=== PATIENT | male | born 1940 | race Caucasian/White ===

== ENCOUNTER 2017-07-14 08:59 | Observation (INO) ==
[2017-07-14 09:26] LABS: Basophils % 0.7 % (0.1-2.0); Eosinophils # 0.2 K/mm3 (0.0-0.4); Eosinophils % 3.9 % (0.1-12.0); Hematocrit 40.6 % (42.0-52.0); Hemoglobin 13.7 g/dL (14.1-18.0); Lymphocytes % 20.4 K/mm3 (10-50); Mean Corpuscular HGB Conc 33.7 g/dL (31.8-35.4); Mean Corpuscular Hemoglobin 29.2 pg (27.0-31.2); Mean Corpuscular Volume 86.8 fl (80-94); Mean Platelet Volume 7.2 fl (7.4-10.4); Monocytes # 0.4 K/mm3 (0.1-1.0); Monocytes % 9.4 % (1.7-9.3); Neutrophils # 3.1 K/mm3 (1.8-7.8); Neutrophils % 65.5 % (37.0-80.0); Platelet Count 194 K/mm3 (142-424); Red Blood Count 4.68 M/mm3 (4.60-6.20); Red Cell Distribution Width 12.7 % (11.5-17.5); White Blood Count 4.7 K/mm3 (4.8-10.8)
[2017-07-14 09:34] LABS: INR 1.4 (0.9-1.1); Prothrombin Time 15.2 seconds (9.4-11.8)
[2017-07-14 09:41] LABS: Albumin Level 3.5 gm/dL (3.4-5.0); Albumin/Globulin Ratio 0.9 (1.1-1.8); Anion Gap 10.3 mEq/L (5-15); Bilirubin,Total 0.2 mg/dL (0.2-1.0); Calcium 8.9 mg/dL (8.5-10.1); Globulin 3.8 gm/dl (1.3-3.2); Potassium 4.3 mmoL/L (3.5-5.1); Total Protein,Serum 7.3 gm/dL (6.4-8.2)
[2017-07-14 10:05] LABS: Microscopic, Urine URINE MICROSCOPIC (MICROSCOPIC)
[2017-07-14 10:21] LABS: Appearance,Urine CLEAR (Clear); Bilirubin,Urine Negative (Negative); Blood, Urine Negative (Negative); Color,Urine YELLOW (Yellow); Glucose,Urine (UA) Negative (Negative); Ketones,Urine Negative (Negative); Leukocyte Esterase,Urine Negative (Negative); Protein,Urine Negative (Negative); Specific Gravity, Urine 1.015 (1.005-1.030); Urobilinogen,Urine 0.2 EU/dl (0.2)
[2017-07-14 10:36] LABS: Bacteria,Urine Trace /lpf; RBC,Urine Occasional #/hpf (0-3); Squamous Epithelial Cell,Urine Occasional #/hpf (0-5)
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
--- NOTE | 2017-07-14 13:47 | Carotid Imaging Report ---
"Cerebrovascular Exam Indications: 780.2 Syncope and collapse. 434.91 Cerebral artery occlusion unspecified with cerebral infarction. IMPRESSIONS Cannot excludeless than 20% stenosis involving the right internal carotid artery and the left internal carotid artery. Technically difficult exam secondary to patient anatomy had very short dense neck could not image beyond bulb. Limited exam. Report is no different from exam done on 06/20/14 same difficulty with that previous exam History: Coronary artery disease. Risk factors: Hypertension. Carotid duplex study. Complete study and Doppler flow study including spectral analysis, color and high scale imaging. Location: Vascular laboratory. Patient status: Inpatient. Tables: Arterial flow: + +---------+---------+ |Location |V sys |V ed | + +---------+---------+ |Right CCA - proximal|-73.9cm/s|-15.7cm/s| + +---------+---------+ |Right CCA - distal |-68.4cm/s|-15.7cm/s| + +---------+---------+ |Left CCA - proximal |58.1cm/s |14.9cm/s | + +---------+---------+ |Left CCA - distal |51.1cm/s |11.8cm/s | + +---------+---------+ |Left ECA |-43.2cm/s|---------| + +---------+---------+ |Left ICA - proximal |-43.2cm/s|-12.6cm/s| + +---------+---------+ (Report amended ) Electronically signed by: Sonu Rivera [id number]"
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
--- NOTE | 2017-07-14 22:47 | Cardiology Report ---
PROCEDURE: 2-D M-mode and color Doppler study INDICATIONS FOR THE TEST: Chest pain COPD Heart Murmur Tobacco SmokingEX Palpitations Fatigue SyncopeX Edema HypertensionXDiabetes Mellitus Rheumatic Fever SOB CHIU ObesityXHyperlipidemia Family History HD Additional History TDS POOR ACOUSTIC WINDOWS PATIENT INFORMATION HEIGHT: 69 WEIGHT:216 GENDER: Male B/P:120/80 2-D/M-MODE INTERPRETATION: 2-D MEASUREMENTS OBSERVED VALUES IN CMS Right Ventricular Dimension (RVDd) 2.8 Interventricular Septum (Thickness)(IVsd) 1.0 Left Ventricular Internal Dimensions(LVIDd) 6.0 Left Ventricular Posterior Wall (Thickness)(LVPWd) 1.2 Aortic Root 3.6 Aortic Cusp Separation 2.2 Left Atrial Dimensions (LAD) 3.2 2D 1. Left atrium is qualitatively mildly enlarged, left ventricle is normal size, mild concentric left ventricular hypertrophy, visually estimated ejection fraction 55% with no obvious regional wall motion abnormality. 2. The right atrium and right ventricle are normal size and contractility. There is a pacemaker lead seen in the right atrium and right ventricle. 3. The aortic valve is minimally thickened and fibrosed. 4. The mitral and tricuspid valve leaflets are minimally thickened. 5. The pulmonic valve is poorly visualized. 6. No significant pericardial effusion noted. DOPPLER INTERROGATION: Doppler interrogation of the aortic, mitral and tricuspid valvular presence of mild mitral and tricuspid regurgitation, tricuspid regurgitant jet velocity is insufficient for calculation of the right ventricular systolic pressure, diastolic parameters are inconclusive. CONCLUSION: 1. Technically difficult study because of the patient's factor and poor acoustic windows 2. Mildly enlarged left atrium, normal left ventricular size, mild concentric left ventricular hypertrophy, visually estimated ejection fraction 55% with no obvious regional wall motion abnormality, diastolic parameters are inconclusive. 3. Mild mitral and tricuspid regurgitation 4. No significant pericardial effusion noted.
--- NOTE | 2017-07-15 06:55 | Progress Note ---
Internal Medicine - PN: Subj *Date: 07/15/17 *Time: 06:53 Interval history: Patient has no complaints this morning. He did well overnight and no one has told him otherwise. He denies headache, chest pain, shortness of breath this morning. When questioned further about his use of Trileptal he tells me he has been on that medication for many years since his prior stroke. He is unaware if he is actually ever had any seizures. Exam Vital signs and Labs for Last 24 Hours: Temp Pulse Resp BP Pulse Ox 98.4 F 67 18 92/56 94 L 07/15/17 03:48 07/15/17 04:00 07/15/17 03:48 07/15/17 03:48 07/15/17 03:48 Laboratory Results - last 24 hr 07/14/17 09:00: WBC 4.7 L, RBC 4.68, Hgb 13.7 L, Hct 40.6 L, MCV 86.8, MCH 29.2 , MCHC 33.7, RDW 12.7, Plt Count 194, MPV 7.2 L, Neut % (Auto) 65.5, Lymph % ( Auto) 20.4, [place] % (Auto) 9.4 H, Eos % (Auto) 3.9, Baso % (Auto) 0.7, Neut # ( Auto) 3.1, Lymph # (Auto) 1.0, [place] # (Auto) 0.4, Eos # (Auto) 0.2, Baso # (Auto ) 0.0 07/14/17 09:00: PT 15.2 H, INR 1.40 H 07/14/17 09:00: Sodium 134 L, Potassium 4.3, Chloride 98, Carbon Dioxide 30, Anion Gap 10.3, BUN 24 H, Creatinine 1.28, Estimated Creat Clear 69, Estimated GFR 55 L, Est GFR ( Amer) 66, Glucose 118 H, Calcium 8.9, Total Bilirubin 0.2, AST 28, ALT 27, Alkaline Phosphatase 122 H, Total Protein 7.3, Albumin 3.5, Globulin 3.8 H, Albumin/Globulin Ratio 0.9 L 07/14/17 09:56: Urine Color Yellow, Urine Appearance Clear, Urine pH 6.0, Ur Specific [place] 1.015, Urine Protein Negative, Urine Glucose (UA) Negative, Urine Ketones Negative, Urine Blood Negative, Urine Nitrate Negative, Urine Bilirubin Negative, Urine Urobilinogen 0.2, Ur Leukocyte Esterase Negative, Urine RBC Occasional, Urine WBC None, Ur Squamous Epith Cells Occasional, Urine Bacteria Trace 07/14/17 14:03: Troponin I < 0.02 I & O for Last 24 hours: Intake & Output 07/12/17 07/13/17 07/14/17 07/15/17 11:59 11:59 11:59 11:59 Intake Total 720 / 720 Output Total 800 / 800 Balance -80 / -80 Weight 209 lb 2 oz 209 lb 2 oz Narrative: He is awake and alert this morning. Oriented to person and place. Lungs are clear. Heart has a regular rate and rhythm. Periorbital erythema is improving. Assessment and Plan (1) Syncope Current visit: Yes Status: Acute Qualifiers: Syncope type: unspecified Qualified Code(s): R55 - Syncope and collapse Category: Medical Code(s): R55 - Syncope and collapse - Assessment and plan all Dx Assessment and Plan for all problems:: 1. EEG and CT angiogram of the head and neck today. 2. PT eval later this afternoon.
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
== END 2017-07-16 09:00 | disposition home or self-care (01) ==
LOC: 2ND 08:59 → ER 08:59 → 2ND 11:47
PROVIDERS: ADMIT Family Medicine; ATTEND Family Medicine

== ENCOUNTER → 2017-08-18 16:02 | Outpatient (CLI) | payer OTHER, MEDICARE, MEDICAID, SELFPAY ==
--- NOTE | 2017-08-18 16:09 | XR_ITS ---
EXAM: XR lumbar spine min 4V HISTORY: ITS.REASON: PAIN OF LUMBOSACRAL SPINE ORDERING PHYSICIAN: Pavan Villalba MD PATIENT AGE: 77 years COMPARISON: None FINDINGS: There is normal alignment. No fracture or dislocation. Endplate osteophytes are present. There are slight decrease in height at T12 appears chronic. There are mild facet arthritic changes at L4-L5 and L5-S1. No bony destructive process evident. There is a total right hip prosthesis and bipolar left hip prosthesis IMPRESSION: Mild lumbar spondylosis with osteophytosis and facet arthritic changes at L4-L5 and L5-S1
== END ==
PROVIDERS: PCP Family Medicine; Visit Provider Family Medicine
DX: M54.5 Low back pain (principal)
CPT/HCPCS: 72110

== ENCOUNTER 2017-12-06 19:06 | Observation (INO) ==
[2017-12-06 20:30] LABS: Prothrombin Time 43.5 seconds (9.4-11.8)
[2017-12-06 20:35] LABS: Albumin Level 3.2 gm/dL (3.4-5.0); Albumin/Globulin Ratio 0.9 (1.1-1.8); Anion Gap 13.4 mEq/L (5-15); Bilirubin,Total 0.4 mg/dL (0.2-1.0); Calcium 8.4 mg/dL (8.5-10.1); Globulin 3.6 gm/dl (1.3-3.2); Potassium 3.4 mmoL/L (3.5-5.1); Total Protein,Serum 6.8 gm/dL (6.4-8.2)
[2017-12-06 20:37] LABS: INR 4.41 (0.9-1.1)
--- NOTE | 2017-12-06 20:40 | Emergency Department Note ---
ED Disposition Clinical Impression: Renal insufficiency, Pacemaker UTI (urinary tract infection) Qualifiers: Urinary tract infection type: acute cystitis Hematuria presence: without hematuria Qualified Code(s): N30.00 - Acute cystitis without hematuria Fall Qualifiers: Encounter type: initial encounter Qualified Code(s): W19.XXXA - Unspecified fall, initial encounter Disposition: Admitted as Observation Condition on Discharge: Good Referrals: Pavan Villalba MD [Primary Care Provider] - - Critical Care Critical Care Time: No Attestation: On 12/06/17, the high probability of a clinically significant, sudden or life threatening deterioration of the following system(s) required my full and direct attention, intervention and personal management. The time I documented below is in addition to time spent performing reported procedures but includes the following listed in this critical care notation. Medical Decision Making - Medical Records Medical records reviewed: Yes: I reviewed the patient's medical records. - Azeem Inquiry Pt receiving controlled substance: No Vital Signs: 12/06/17 19:09 Temperature 98.9 F Temperature Source Oral Pulse Rate [Apical] 62 Respiratory Rate 18 Blood Pressure [Right Arm] 114/68 Blood Pressure Mean [Right Arm] 83 Blood Pressure Source [Right Arm] Automatic Cuff Blood Pressure Position [Right Arm] Sitting 02 Sat by Pulse Oximetry 96 Oxygen Delivery Method Room Air - Lab Data Lab results reviewed: Yes: I reviewed the patient's lab results. Lab Results 12/06/17 20:10: WBC 6.6, RBC 4.07 L, Hgb 11.8 L, Hct 35.7 L, MCV 87.7, MCH 29.0, MCHC 33.1, RDW 13.5, Plt Count 254, MPV 7.3 L, Neut % (Auto) 83.2 H, Lymph % (A uto) 9.4 L, [place] % (Auto) 7.0, Eos % (Auto) 0.3, Baso % (Auto) 0.1, Neut # (Auto) 5.5, Lymph # (Auto) 0.6 L, [place] # (Auto) 0.5, Eos # (Auto) 0.0, Baso # (Auto) 0.0 12/06/17 20:10: Sodium 137, Potassium 3.4 L, Chloride 102, Carbon Dioxide 25, Anion Gap 13.4, BUN 54 H, Creatinine 2.10 H, Estimated Creat Clear 41, Estimated GFR 31 L, Est GFR ( Amer) 37 L, Glucose 114 H, Calcium 8.4 L, Total Bilirubin 0.4, AST 21, ALT 27, Alkaline Phosphatase 109, Total Protein 6.8, Albumin 3.2 L, Globulin 3.6 H, Albumin/Globulin Ratio 0.9 L 12/06/17 20:10: PT 43.5 H, INR 4.41 H 12/06/17 20:10: Troponin I < 0.02 12/06/17 21:00: Urine Color Yellow, Urine Appearance Cloudy, Urine pH 6.0, Ur Specific [place] 1.025, Urine Protein 1+, Urine Glucose (UA) Negative, Urine Ketones Negative, Urine Blood 2+, Urine Nitrate Positive, Urine Bilirubin Neg ative, Urine Urobilinogen 0.2, Ur Leukocyte Esterase 2+ A, Urine RBC 5-10, Urine WBC Tntc Result diagrams: 12/06/17 20:10 12/06/17 20:10 Orders (Tests/Meds): ORDERS Category Date Time Status XR chest AP Stat Exams 12/06/17 19:31 Taken XR pelvis 1-2V Stat Exams 12/06/17 19:31 Taken UA [Urinalysis and Microscopic] Stat Lab 12/06/17 21:00 Ordered Urine Culture Stat Micro 12/06/17 21:00 Received - Radiology Data #1 Image(s): Chest, Pelvis Image Reviewed: Yes I reviewed the patient's radiology image Preliminary Findings: No Fracture Seen - CT Data CT Scan: Head Time Received: 21:[address] Reviewed: Yes: I have viewed the radiologist's interpretation Preliminary Findings: Normal/NAD - ECG Data Tracing #1 Arrhythmias present: other (pacemaker) - Physician Consults Physician Consulted: darian Reason -: Admission Fall HPI - General Chief Complaint: Fall Stated Complaint: slipped and fell at home Time Seen by Provider: 12/06/17 20:00 Mode of Arrival: EMS Limitations: No Limitations Description of Symptoms (Recalled from ER Triage Doc. by RN): Per EMS reports pt family wanted him to come and get checked out r/t a slip and fall. Pt reports he was getting up from the toilet tripped on his pants leg and his shoe slipped causing him to fall. Pt denies any injury or pain. Upon arrival of pt family, family reports pt has had weakness x3 days - History of Present Illness HPI Narrative: pt with fall at home with hx of trip type injury getting off toilet - he has been weak over the last few days also - no fever or vomiting MD complaint: fall Onset (ago): hour(s) Fall from: other (toilet seat ) Fall witnessed: no Place fall occurred: home Loss of consciousness: none Prolonged down time: no Symptoms prior to fall: none Context: tripped/slipped Location of injury: head, pelvis Severity: moderate Associated symptoms (after fall): denies - Related Data Home Medications Medication Instructions Recorded Confirmed atenolol 50 mg tablet 50 mg PO BID 05/21/17 12/06/17 cholecalciferol (vitamin D3) 5,000 5,000 unit PO ONCE 05/21/17 12/06/17 unit capsule donepezil 10 mg tablet 10 mg PO HS 05/21/17 12/06/17 ezetimibe 10 mg-simvastatin 20 mg 1 tab PO HS 05/21/17 12/06/17 tablet lisinopril 10 mg tablet 10 mg PO DAILY 05/21/17 12/06/17 oxybutynin chloride 5 mg tablet 5 mg PO TID 05/21/17 12/06/17 tamsulosin 0.4 mg capsule 0.4 mg PO DAILY cap 05/21/17 12/06/17 oxcarbazepine 300 mg tablet 0.5 tab PO BID tab 09/28/17 12/06/17 warfarin 5 mg tablet 5 mg PO DAILY tab 09/28/17 12/06/17 naproxen 500 mg tablet 500 mg PO BID 11/26/17 12/06/17 Allergies Allergy/AdvReac Type Severity Reaction Status Date / Time codeine [CODEINE] Allergy Mild HEART RACE Verified 11/26/17 10:57 [facility] History I have reviewed the patient's past medical history: Yes Medical History: Reports:: Arrhythmia, Atrial Fibrillation, Cancer, Cerebrovascular Accident, Dementia, Hyperlipidemia, Hypertension, Internal Pacemaker, Seizures Denies:: Diabetes Mellitus Type 1, Diabetes Mellitus Type 2, MRSA Other Medical History: Reports: Other Comment: Kidney disease, prostate cancer Laterality Cases: Bilateral: Arthroscopy Hip, Total Hip Replacement Other Surgeries: Yes: Hernia Repair, Pacemaker Amputation: No Fractures: Yes (Right bimalleolar fx) Comment: Dual-chamber [employer] pacemaker implanted 2013 - Social History Smoking Status: Former smoker Tobacco Type: cigarettes Alcohol Intake: never Alcohol Intake Frequency:: other Substance Use Type: denies use Occupational Status: retired Housing: house Household Members: none - Psychiatric History Expresses thoughts of harming self/others: None Suicide Plan Description: No Plan Family Hx:: Diabetes, Cancer ROS Obtained: Yes All systems reviewed & no additional complaints - Constitutional Constitutional: Denies fever(s), Reports frequent falls, Denies headache(s) - Eyes Eyes: Denies change in vision - ENT Ears, Nose, Mouth, and Throat: Denies sore throat - Cardiovascular Cardiovascular: Denies chest pain - Respiratory Respiratory: No cough - Gastrointestinal Gastrointestingal: Denies: dysphagia - Genitourinary Male Genitourinary: Denies hematuria - Musculoskeletal Musculoskeletal: Reports joint pain, Denies back pain, Denies joint swelling, Denies neck pain - Integumentary/Breasts Skin/Breast: Denies rash - Neurologic Neurologic: Denies confusion, Reports frequent falls, Denies headache(s), Denies seizure-like activity Physical Exam - General General appearance: in no apparent distress - Head Head exam: normocephalic - Eye Eye exam: Present: PERRL, EOMI - ENT ENT exam: Present: mucous membranes dry - Neck Neck exam: Present: trachea midline - Respiratory Respiratory exam: Present: other (dec bs bilat ). Absent: respiratory distress - Cardiovascular Cardiovascular exam: Present: regular rate, systolic murmur, Pacemaker w/paced rhythm - Abdominal Exam Abdominal exam: Present: soft - Extremities Exam Extremities exam: Present: pedal edema, other (no pain with rom ) - Neurological Exam Neurological exam: Present: alert, CN II-XII intact - Psychiatric Psychiatric exam: Absent: normal affect - Skin Skin exam: Absent: rash
[2017-12-06 20:44] LABS: Basophils % 0.1 % (0.1-2.0); Eosinophils % 0.3 % (0.1-12.0); Hematocrit 35.7 % (42.0-52.0); Hemoglobin 11.8 g/dL (14.1-18.0); Lymphocytes # 0.6 K/mm3 (0.7-4.5); Lymphocytes % 9.4 K/mm3 (10-50); Mean Corpuscular HGB Conc 33.1 g/dL (31.8-35.4); Mean Corpuscular Volume 87.7 fl (80-94); Mean Platelet Volume 7.3 fl (7.4-10.4); Monocytes # 0.5 K/mm3 (0.1-1.0); Neutrophils # 5.5 K/mm3 (1.8-7.8); Neutrophils % 83.2 % (37.0-80.0); Platelet Count 254 K/mm3 (142-424); Red Blood Count 4.07 M/mm3 (4.60-6.20); Red Cell Distribution Width 13.5 % (11.5-17.5); White Blood Count 6.6 K/mm3 (4.8-10.8)
[2017-12-06 21:15] LABS: Appearance,Urine CLOUDY (Clear); Bilirubin,Urine Negative (Negative); Blood, Urine 2+ (Negative); Color,Urine YELLOW (Yellow); Glucose,Urine (UA) Negative (Negative); Ketones,Urine Negative (Negative); Leukocyte Esterase,Urine 2+ (Negative); Microscopic, Urine URINE MICROSCOPIC (MICROSCOPIC); Protein,Urine 1+ (Negative); Specific Gravity, Urine 1.025 (1.005-1.030); Urobilinogen,Urine 0.2 EU/dl (0.2)
[2017-12-06 21:30] LABS: WBC,Urine TNTC #/hpf (0-3)
[2017-12-07 05:09] LABS: Anion Gap 13.4 mEq/L (5-15); Blood Urea Nitrogen 48 mg/dL (7-18); Calcium 8.3 mg/dL (8.5-10.1); Carbon Dioxide 24 mmol/L (21.0-32.0); Chloride 105 mmol/L (98-107); Glucose 120 mg/dL (74-106); Potassium 3.4 mmoL/L (3.5-5.1); Sodium 139 mmol/L (136-145)
[2017-12-07 05:11] LABS: Basophils % 0.2 % (0.1-2.0); Eosinophils % 0.4 % (0.1-12.0); Hematocrit 35.3 % (42.0-52.0); Hemoglobin 11.8 g/dL (14.1-18.0); Lymphocytes # 0.7 K/mm3 (0.7-4.5); Lymphocytes % 11.7 K/mm3 (10-50); Mean Corpuscular HGB Conc 33.3 g/dL (31.8-35.4); Mean Corpuscular Volume 87.1 fl (80-94); Mean Platelet Volume 7.1 fl (7.4-10.4); Monocytes # 0.5 K/mm3 (0.1-1.0); Monocytes % 8.2 % (1.7-9.3); Neutrophils # 4.8 K/mm3 (1.8-7.8); Neutrophils % 79.4 % (37.0-80.0); Platelet Count 229 K/mm3 (142-424); Red Blood Count 4.05 M/mm3 (4.60-6.20); Red Cell Distribution Width 13.5 % (11.5-17.5)
[2017-12-07 05:14] LABS: INR 5.49 (0.9-1.1); Prothrombin Time 53.8 seconds (9.4-11.8)
== END 2017-12-07 09:22 | disposition home or self-care (01) ==
LOC: 2ND 19:06 → ER 19:06 → 2ND 23:01
PROVIDERS: ADMIT Family Medicine; ATTEND Family Medicine

== ENCOUNTER 2017-12-14 11:12 | Observation (INO) ==
[2017-12-14 13:05] LABS: Basophils % 0.1 % (0.1-2.0); Eosinophils % 0.3 % (0.1-12.0); Hematocrit 40.6 % (42.0-52.0); Lymphocytes # 0.3 K/mm3 (0.7-4.5); Lymphocytes % 3.7 K/mm3 (10-50); Mean Corpuscular HGB Conc 32.1 g/dL (31.8-35.4); Mean Corpuscular Hemoglobin 28.5 pg (27.0-31.2); Mean Corpuscular Volume 88.8 fl (80-94); Mean Platelet Volume 7.5 fl (7.4-10.4); Monocytes # 0.5 K/mm3 (0.1-1.0); Monocytes % 5.2 % (1.7-9.3); Neutrophils # 8.1 K/mm3 (1.8-7.8); Neutrophils % 90.8 % (37.0-80.0); Platelet Count 326 K/mm3 (142-424); Red Blood Count 4.57 M/mm3 (4.60-6.20); Red Cell Distribution Width 13.9 % (11.5-17.5)
[2017-12-14 13:13] LABS: Prothrombin Time 67.2 seconds (9.4-11.8)
[2017-12-14 13:14] LABS: INR 6.9 (0.9-1.1)
[2017-12-14 13:17] LABS: Albumin Level 3.1 gm/dL (3.4-5.0); Albumin/Globulin Ratio 0.8 (1.1-1.8); Anion Gap 13.9 mEq/L (5-15); Bilirubin,Total 0.4 mg/dL (0.2-1.0); Calcium 8.9 mg/dL (8.5-10.1); Globulin 4.1 gm/dl (1.3-3.2); Potassium 3.9 mmoL/L (3.5-5.1); Total Protein,Serum 7.2 gm/dL (6.4-8.2)
--- NOTE | 2017-12-14 14:30 | Pharmacy Consult Notes ---
[facility] Pharmacy VTE Monitoring - Patient Demographics Admission date: 12/14/17 Report Date: 12/14/17 Time: 14:30 Allergies/Adverse Reactions: Patient Allergies codeine [CODEINE] Allergy (Mild, Verified 11/26/17 10:57) HEART RACE Height: 1.68 m Weight: 98.628 kg - VTE Risk Labs: VTE Related Lab Results Hgb 13.0 g/dL (14.1-18.0) L 12/14/17 12:50 Hct 40.6 % (42.0-52.0) L 12/14/17 12:50 Plt Count 326 K/mm3 (142-424) 12/14/17 12:50 PT 67.2 seconds (9.4-11.8) H 12/14/17 12:50 INR 6.90 (0.9-1.1) H 12/14/17 12:50 BUN 59 mg/dL (7-18) H 12/14/17 12:50 Creatinine 2.94 mg/dL (0.70-1.30) H 12/14/17 12:50 Estimated Creat Clear 30 mL/min (0-300) 12/14/17 12:50 VTE Score: 5 VTE Risk Level: Low Risk - Prophylaxis VTE Prophylaxis Ordered?: Yes Types of VTE Prophylaxis: TEDS Knee High Location of Applied Device: Bilateral Lower Extremeties
[2017-12-14 14:36] LABS: Lymphocytes % 3 % (10-50); Monocytes % 3 % (2-9); Neutrophils % 93 % (42-76); RBC Morphology Normal; Total Cells Counted 100
--- NOTE | 2017-12-14 14:53 | Pharmacy Consult Notes ---
[facility] Pharmacy VTE Monitoring - Patient Demographics Allergies/Adverse Reactions: Patient Allergies codeine [CODEINE] Allergy (Mild, Verified 11/26/17 10:57) HEART RACE Height: 1.68 m Weight: 98.628 kg - VTE Risk Labs: VTE Related Lab Results Hgb 13.0 g/dL (14.1-18.0) L 12/14/17 12:50 Hct 40.6 % (42.0-52.0) L 12/14/17 12:50 Plt Count 326 K/mm3 (142-424) 12/14/17 12:50 PT 67.2 seconds (9.4-11.8) H 12/14/17 12:50 INR 6.90 (0.9-1.1) H 12/14/17 12:50 BUN 59 mg/dL (7-18) H 12/14/17 12:50 Creatinine 2.94 mg/dL (0.70-1.30) H 12/14/17 12:50 Estimated Creat Clear 30 mL/min (0-300) 12/14/17 12:50 VTE Score: 5 VTE Risk Level: Low Risk - Prophylaxis Location of Applied Device: Not Applicable
--- NOTE | 2017-12-14 16:34 | History & Physical Report ---
*Admission Date: 12/14/17 *Chief complaint: Shortness of breath *History of present illness: 77-year-old male admitted from the office today after presenting to the office for the second time in 5 days with complaint of shortness of breath. 5 days ago patient was seen and diagnosed with a COPD exacerbation and placed on steroids and an albuterol inhaler. Patient was accompanied by his son-in-law who reported that patient did not do well over the following days. The son-in-law almost brought the patient to the hospital yesterday but opted to wait for another day. In the office he was in mild respiratory distress with increased wheezing compared to his visit 5 days earlier. O2 sats were 85% on room air. Patient was mildly high in appearance and was so dyspneic he could not talk. Decision was made to admit the patient to the hospital for COPD exacerbation with concern pneumonia. Patient is also complained of new onset abdominal distention. He admits that he is not urinating very well. His last bowel movement was yesterday and was described as diarrhea. Patient was hospitalized approximately 1 week ago overnight for an observation admission for a urinary tract infection that grew E. coli sensitive to Cipro. During that hospitalization his INR was supratherapeutic and his coagulopathy was treated by holding his Coumadin. Patient did not take warfarin for 3 days and on return to the office his INR was 1.6. It was at that time he was restarted on warfarin at a reduced dose of 3 mg daily. [facility] History I have reviewed the patient's past medical history: Yes Medical History: Reports:: Arrhythmia, Atrial Fibrillation, Cancer (Prostate cancer), Cerebrovascular Accident, Dementia, Hyperlipidemia, Hypertension, Internal Pacemaker, Seizures Denies:: Diabetes Mellitus Type 1, Diabetes Mellitus Type 2, MRSA Other Medical History: Reports: Arthritis, Other Laterality Cases: Bilateral: Arthroscopy Hip, Total Hip Replacement Other Surgeries: Yes: Hernia Repair, Pacemaker Amputation: No Fractures: Yes (Right bimalleolar fx) - *Social History Smoking Status: Former smoker Tobacco Type: cigarettes Alcohol Intake: never Alcohol Intake Frequency:: holidays/special occasions only Substance Use Type: denies use Occupational Status: retired Housing: house Household Members: none - Psychiatric History Expresses thoughts of harming self/others: None Suicide Plan Description: No Plan *Family Hx:: Diabetes, Cancer Review of Systems - Review of Systems Review of systems:: pertinent systems reviewed and negative unless documented below - Constitutional Reports body ache(s), Denies chills - *Cardiovascular Denies chest pain, Denies chest pain at rest - *Respiratory Reports chest congestion, Reports cough, Reports shortness of breath, Reports shortness of breath with activity, Denies coughing up blood - *Gastrointestinal Reports bloating, Reports change in bowel habits, Reports cramping, Reports loose stools, Denies abdominal pain, Denies belching, Denies coffee ground vomit, Denies difficulty swallowing, Denies excessive passing of gas, Denies heartburn, Denies vomiting blood, Denies bright, red blood in stools, Denies black, tarry stools - *Genitourinary Reports difficulty urinating Meds Home Medications Medication Instructions Recorded Confirmed Type atenolol 50 mg tablet 50 mg PO BID 05/21/17 12/14/17 History cholecalciferol (vitamin D3) 5,000 5,000 unit PO ONCE 05/21/17 12/14/17 History unit capsule donepezil 10 mg tablet 10 mg PO HS 05/21/17 12/14/17 History ezetimibe 10 mg-simvastatin 20 mg 1 tab PO HS 05/21/17 12/14/17 History tablet oxybutynin chloride 5 mg tablet 5 mg PO TID 05/21/17 12/14/17 History tamsulosin 0.4 mg capsule 0.4 mg PO DAILY cap 05/21/17 12/14/17 History oxcarbazepine 300 mg tablet 0.5 tab PO BID tab 09/28/17 12/14/17 History Ciprofloxacin HCl [Cipro 250mg Tab] 250 mg PO BID 12/14/17 12/14/17 History Dicyclomine HCl [Bentyl 10mg 10 mg PO QID 12/14/17 12/14/17 History capsule] Furosemide [Furosemide 40MG tAB] 40 mg PO DAILY 12/14/17 12/14/17 History Lisinopril [Lisinopril 10mg Tab] 10 mg PO DAILY 12/14/17 12/14/17 History Naproxen Sodium [Naproxen ER 500mg 500 mg PO DAILY 12/14/17 12/14/17 History Tab] OXcarbazepine [Oxcarbazepine] 300 mg PO BID 12/14/17 12/14/17 History Warfarin Sodium 1 mg PO DAILY 12/14/17 12/14/17 History Warfarin Sodium 4 mg PO DAILY 12/14/17 12/14/17 History Warfarin Sodium 5 mg PO DAILY 12/14/17 12/14/17 History Warfarin Sodium [Coumadin 3mg 3 mg PO DAILY 12/14/17 12/14/17 History tablet] predniSONE [Prednisone 20mg 20 mg PO DAILY 12/14/17 12/14/17 History Tab] Allergies Allergy/AdvReac Type Severity Reaction Status Date / Time codeine [CODEINE] Allergy Mild HEART RACE Verified 11/26/17 10:57 Exam Vital signs and Labs for Last 24 Hours: Temp Pulse Resp BP Pulse Ox 97.8 F 114 H 18 100/60 93 L 12/14/17 16:00 12/14/17 16:00 12/14/17 16:00 12/14/17 16:00 12/14/17 16:00 Laboratory Results - last 24 hr 12/14/17 12:50: WBC 9.0, RBC 4.57 L, Hgb 13.0 L, Hct 40.6 L, MCV 88.8, MCH 28.5, MCHC 32.1, RDW 13.9, Plt Count 326, MPV 7.5, Neut % (Auto) 90.8 H, Lymph % (Auto) 3.7 L, [place] % (Auto) 5.2, Eos % (Auto) 0.3, Baso % (Auto) 0.1, Neut # (Auto) 8.1 H, Lymph # (Auto) 0.3 L, [place] # (Auto) 0.5, Eos # (Auto) 0.0, Baso # (Auto) 0.0, Total Counted 100, Neutrophils % (Manual) 93 H, Band Neutrophils % 1.0, Lymphocytes % (Manual) 3 L, Monocytes % (Manual) 3, Platelet Estimate Normal, RBC Morphology Normal 12/14/17 12:50: Sodium 134 L, Potassium 3.9, Chloride 98, Carbon Dioxide 26, Anion Gap 13.9, BUN 59 H, Creatinine 2.94 H, Estimated Creat Clear 30, Estimated GFR 21 L, Est GFR ( Amer) 25 L, Glucose 188 H, Calcium 8.9, Total Bilirubin 0.4, AST 84 H, ALT 87 H, Alkaline Phosphatase 110, Total Protein 7.2, Albumin 3.1 L, Globulin 4.1 H, Albumin/Globulin Ratio 0.8 L 12/14/17 12:50: B-Natriuretic Peptide 231 H 12/14/17 12:50: PT 67.2 H, INR 6.90 H I & O for Last 24 hours: Intake & Output 12/12/17 12/13/17 12/14/17 12/15/17 11:59 11:59 11:59 11:59 Weight 217 lb 7 oz 217 lb 7 oz Narrative: Presently patient is awake. He is oriented to person, place and year. Color has already improved compared to his examination in the office 5 hours earlier. Patient is more alert. Oropharynx is moist. Neck is without lymphadenopathy. Lungs are clear at this time (patient had diffuse wheezing in the office). Heart has an irregularly irregular rate and rhythm. Abdomen is significantly distended with tympany and diminished bowel sounds. There is no abdominal tenderness. Patient has active range of motion of all extremities and can ambulate on his own H&P: Result - Impressions Chest x-ray shows significant gaseous extension in the abdominal cavity. An abdominal film has been ordered separately and is in process. Assessment and Plan (1) COPD with exacerbation Current visit: Yes Status: Acute Category: Medical Code(s): J44.1 - Chronic obstructive pulmonary disease with (acute) exacerbation Solu-Medrol every 6 hours, ipratropium and Xopenex nebs (2) Warfarin-induced coagulopathy Current visit: Yes Status: Acute Category: Medical Code(s): D68.32 - Hemorrhagic disorder due to extrinsic circulating anticoagulants; T45.515A - Adverse effect of anticoagulants, initial encounter Patient has been given vitamin K 2.5 mg subcu. Repeat INR in a.m. (3) Abdominal distention Current visit: Yes Status: Acute Category: Medical Code(s): R14.0 - Abdominal distension (gaseous) Await abdominal films. May need NG tube (4) Urinary retention Current visit: Yes Status: Acute Category: Medical Code(s): R33.9 - Retention of urine, unspecified Insert Grimaldo catheter (5) UTI (urinary tract infection), bacterial Current visit: Yes Status: Suspected Category: Medical Code(s): N39.0 - Urinary tract infection, site not specified; A49.9 - Bacterial infection, unspecified Present on admission (6) Acute kidney injury Current visit: No Status: Acute Category: Medical Code(s): N17.9 - Acute kidney failure, unspecified IV fluids (7) Chronic atrial fibrillation Current visit: Yes Status: Acute Category: Medical Code(s): I48.2 - Chron ic atrial fibrillation
--- NOTE | 2017-12-14 18:37 | Consult Report ---
*Admission Date: 12/14/17 *Chief complaint: Abdominal distention *History of present illness: Patient is a 77-year-old white male with a history of COPD, atrial fibrillation on chronic warfarin anticoagulation therapy, prior cerebrovascular accident, pacemaker. He had recently been treated for COPD exacerbation as an outpatient with course of steroids. He was seen in his primary physician's office this af ternoon with some increasing shortness of air, urinary retention, and abdominal distention. He was admitted for inpatient management for apparent presumed COPD exacerbation. Chest x-ray was highly suggestive of pneumoperitoneum. Surgery was contacted. Patient had a CT scan ordered urgently. Review of Systems - Review of Systems Review of systems:: unable to obtain [facility] History Medical History: Reports:: Arrhythmia, Atrial Fibrillation, Cancer (Prostate cancer), Cerebrovascular Accident, Dementia, Hyperlipidemia, Hypertension, Internal Pacemaker, Seizures Denies:: Diabetes Mellitus Type 1, Diabetes Mellitus Type 2, MRSA Other Medical History: Reports: Arthritis, Other Laterality Cases: Bilateral: Arthroscopy Hip, Total Hip Replacement Other Surgeries: Yes: Hernia Repair, Pacemaker Amputation: No Fractures: Yes (Right bimalleolar fx) - *Social History Smoking Status: Former smoker Tobacco Type: cigarettes Alcohol Intake: never Alcohol Intake Frequency:: holidays/special occasions only Substance Use Type: denies use Occupational Status: retired Housing: house Household Members: none - Psychiatric History Expresses thoughts of harming self/others: None Suicide Plan Description: No Plan *Family Hx:: Diabetes, Cancer Meds Home Medications Medication Instructions Recorded Confirmed Type atenolol 50 mg tablet 50 mg PO BID 05/21/17 12/14/17 History cholecalciferol (vitamin D3) 5,000 5,000 unit PO ONCE 05/21/17 12/14/17 History unit capsule donepezil 10 mg tablet 10 mg PO HS 05/21/17 12/14/17 History ezetimibe 10 mg-simvastatin 20 mg 1 tab PO HS 05/21/17 12/14/17 History tablet oxybutynin chloride 5 mg tablet 5 mg PO TID 05/21/17 12/14/17 History tamsulosin 0.4 mg capsule 0.4 mg PO DAILY cap 05/21/17 12/14/17 History oxcarbazepine 300 mg tablet 0.5 tab PO BID tab 09/28/17 12/14/17 History Ciprofloxacin HCl [Cipro 250mg Tab] 250 mg PO BID 12/14/17 12/14/17 History Dicyclomine HCl [Bentyl 10mg 10 mg PO QID 12/14/17 12/14/17 History capsule] Furosemide [Furosemide 40MG tAB] 40 mg PO DAILY 12/14/17 12/14/17 History Lisinopril [Lisinopril 10mg Tab] 10 mg PO DAILY 12/14/17 12/14/17 History Naproxen Sodium [Naproxen ER 500mg 500 mg PO DAILY 12/14/17 12/14/17 History Tab] OXcarbazepine [Oxcarbazepine] 300 mg PO BID 12/14/17 12/14/17 History Warfarin Sodium 1 mg PO DAILY 12/14/17 12/14/17 History Warfarin Sodium 4 mg PO DAILY 12/14/17 12/14/17 History Warfarin Sodium 5 mg PO DAILY 12/14/17 12/14/17 History Warfarin Sodium [Coumadin 3mg 3 mg PO DAILY 12/14/17 12/14/17 History tablet] predniSONE [Prednisone 20mg 20 mg PO DAILY 12/14/17 12/14/17 History Tab] Allergies Allergy/AdvReac Type Severity Reaction Status Date / Time codeine [CODEINE] Allergy Mild HEART RACE Verified 11/26/17 10:57 Exam Vital signs and Labs for Last 24 Hours: Temp Pulse Resp BP Pulse Ox 97.8 F 114 H 18 100/60 93 L 12/14/17 16:00 12/14/17 16:00 12/14/17 16:00 12/14/17 16:00 12/14/17 16:00 Laboratory Results - last 24 hr 12/14/17 12:50: WBC 9.0, RBC 4.57 L, Hgb 13.0 L, Hct 40.6 L, MCV 88.8, MCH 28.5, MCHC 32.1, RDW 13.9, Plt Count 326, MPV 7.5, Neut % (Auto) 90.8 H, Lymph % (Auto) 3.7 L, [place] % (Auto) 5.2, Eos % (Auto) 0.3, Baso % (Auto) 0.1, Neut # (Auto) 8.1 H, Lymph # (Auto) 0.3 L, [place] # (Auto) 0.5, Eos # (Auto) 0.0, Baso # (Auto) 0.0, Total Counted 100, Neutrophils % (Manual) 93 H, Band Neutrophils % 1.0, Lymphocytes % (Manual) 3 L, Monocytes % (Manual) 3, Platelet Estimate Normal, RBC Morphology Normal 12/14/17 12:50: Sodium 134 L, Potassium 3.9, Chloride 98, Carbon Dioxide 26, Anion Gap 13.9, BUN 59 H, Creatinine 2.94 H, Estimated Creat Clear 30, Estimated GFR 21 L, Est GFR ( Amer) 25 L, Glucose 188 H, Calcium 8.9, Total Bilirubin 0.4, AST 84 H, ALT 87 H, Alkaline Phosphatase 110, Total Protein 7.2, Albumin 3.1 L, Globulin 4.1 H, Albumin/Globulin Ratio 0.8 L 12/14/17 12:50: B-Natriuretic Peptide 231 H 12/14/17 12:50: PT 67.2 H, INR 6.90 H 12/14/17 18:00: Blood Type O Positive I & O for Last 24 hours: Intake & Output 12/12/17 12/13/17 12/14/17 12/15/17 11:59 11:59 11:59 11:59 Weight 217 lb 7 oz 217 lb 7 oz - Constitutional mild distress - *Routine HEENT Exam Head: Present: normocephalic - *Routine Respiratory Exam Present: decreased breath sounds, wheezes, distant breath sounds - *Routine Cardiovascular Exam Present: tachycardia - *Routine Abdominal Exam Present: tenderness, distended Comments: Abdomen is markedly distended and tympanic. Hypoactive bowel sounds. Tender to deep palpation. No rebound. Results - Labs 12/14/17 12:50 12/14/17 12:50 Laboratory Results - last 24 hr 12/14/17 12:50: WBC 9.0, RBC 4.57 L, Hgb 13.0 L, Hct 40.6 L, MCV 88.8, MCH 28.5, MCHC 32.1, RDW 13.9, Plt Count 326, MPV 7.5, Neut % (Auto) 90.8 H, Lymph % (Auto) 3.7 L, [place] % (Auto) 5.2, Eos % (Auto) 0.3, Baso % (Auto) 0.1, Neut # (Auto) 8.1 H, Lymph # (Auto) 0.3 L, [place] # (Auto) 0.5, Eos # (Auto) 0.0, Baso # (Auto) 0.0, Total Counted 100, Neutrophils % (Manual) 93 H, Band Neutrophils % 1.0, Lymphocytes % (Manual) 3 L, Monocytes % (Manual) 3, Platelet Estimate Normal, RBC Morphology Normal 12/14/17 12:50: Sodium 134 L, Potassium 3.9, Chloride 98, Carbon Dioxide 26, Anion Gap 13.9, BUN 59 H, Creatinine 2.94 H, Estimated Creat Clear 30, Estimated GFR 21 L, Est GFR ( Amer) 25 L, Glucose 188 H, Calcium 8.9, Total Bilirubin 0.4, AST 84 H, ALT 87 H, Alkaline Phosphatase 110, Total Protein 7.2, Albumin 3.1 L, Globulin 4.1 H, Albumin/Globulin Ratio 0.8 L 12/14/17 12:50: B-Natriuretic Peptide 231 H 12/14/17 12:50: PT 67.2 H, INR 6.90 H 12/14/17 18:00: Blood Type O Positive Assessment and Plan (1) COPD with exacerbation Current visit: Yes Status: Acute Category: Medical Code(s): J44.1 - Chronic obstructive pulmonary disease with (acute) exacerbation (2) Warfarin-induced coagulopathy Current visit: Yes Status: Acute Category: Medical Code(s): D68.32 - Hemorrhagic disorder due to extrinsic circulating anticoagulants; T45.515A - Adverse effect of anticoagulants, initial encounter (3) Abdominal distention Current visit: Yes Status: Acute Category: Medical Code(s): R14.0 - Abdominal distension (gaseous) (4) Urinary retention Current visit: Yes Status: Acute Category: Medical Code(s): R33.9 - Retention of urine, unspecified (5) UTI (urinary tract infection), bacterial Current visit: Yes Status: Suspected Category: Medical Code(s): N39.0 - Urinary tract infection, site not specified; A49.9 - Bacterial infection, unspecified (6) Acute kidney injury Current visit: No Status: Acute Category: Medical Code(s): N17.9 - Acute kidney failure, unspecified (7) Chronic atrial fibrillation Current visit: Yes Status: Acute Category: Medical Code(s): I48.2 - Chronic atrial fibrillation - Assessment and plan all Dx Assessment and Plan for all problems:: Patient has findings of marked pneumoperitoneum with significant coagulopathy with an INR of 6.9. Given this, his chronically debilitated state, comorb idities, and current acute state of health I would advocate immediate transfer to tertiary facility. I have discussed the case with [facility] surgery Dr. Rupert Martinez 3 to accept the patient in immediate transfer to be seen as a surgical emergency in the emergency department.
--- NOTE | 2017-12-14 19:01 | Discharge Summary ---
General - General Admission date:: 12/14/17 Discharge date: 12/14/17 HPI HPI: 77-year-old male admitted from the office today after presenting to the office for the second time in 5 days with complaint of shortness of breath. 5 days ago patient was seen and diagnosed with a COPD exacerbation and placed on steroids and an albuterol inhaler. Patient was accompanied by his son-in-law who reported that patient did not do well over the following days. The son-in-law almost brought the patient to the hospital yesterday but opted to wait for another day. In the office he was in mild respiratory distress with increased wheezing compared to his visit 5 days earlier. O2 sats were 85% on room air. Patient was mildly high in appearance and was so dyspneic he could not talk. Decision was made to admit the patient to the hospital for COPD exacerbation with concern pneumonia. Patient is also complained of new onset abdominal distention. He admits that he is not urinating very well. His last bowel movement was yesterday and was described as diarrhea. He denies fever, chills, abdominal pain Patient was hospitalized approximately 1 week ago overnight for an observation admission for a urinary tract infection that grew E. coli sensitive to Cipro. During that hospitalization his INR was supratherapeutic and his coagulopathy was treated by holding his Coumadin. Patient did not take warfarin for 3 days and on return to the office his INR was 1.6. It was at that time he was restarted on warfarin at a reduced dose of 3 mg daily. Hospital Course Hospital Course: Patient was admitted and placed on IV solu-medrol, levaquin, and nebulized ipratropium and xopenex. Nebulized meds relieved wheezing. X-ray showed a right lower lobe pneumonia. X-ray also was consistent with free air and a CT of the Chest/Abd/Pelvis confirmed a pneumoperitoneum. Dr. Salguero was consulted and evaluated the. Due to concurrent warfarin induced coagulopathy patient was considered extremely high risk and decision was made to transfer to . Dr. Salguero arranged transfer to the surgical service which will evaluate the patient upon arrival. Prior to discharge pateint was given 10mg vitamin K IV. Objective Vital signs: Temp Pulse Resp BP Pulse Ox 97.8 F 114 H 18 100/60 93 L 12/14/17 16:00 12/14/17 16:00 12/14/17 16:00 12/14/17 16:00 12/14/17 16:00 Results Labs on day of discharge: Labs from last 24 hours 12/14/17 12/14/17 12/14/17 18:40 18:00 12:50 WBC RBC Hgb Hct MCV MCH MCHC RDW Plt Count MPV Neut % (Auto) Lymph % (Auto) [place] % (Auto) Eos % (Auto) Baso % (Auto) Neut # (Auto) Lymph # (Auto) [place] # (Auto) Eos # (Auto) Baso # (Auto) Total Counted Neutrophils % (Manual) Band Neutrophils % Lymphocytes % (Manual) Monocytes % (Manual) Platelet Estimate RBC Morphology PT 67.2 H INR 6.90 H Sodium Potassium Chloride Carbon Dioxide Anion Gap BUN Creatinine Estimated Creat Clear Estimated GFR Est GFR ( Amer) Glucose Calcium Total Bilirubin AST ALT Alkaline Phosphatase B-Natriuretic Peptide Total Protein Albumin Globulin Albumin/Globulin Ratio Blood Type O Positive Blood Type Confirm Pending 12/14/17 12/14/17 12/14/17 12:50 12:50 12:50 WBC 9.0 RBC 4.57 L Hgb 13.0 L Hct 40.6 L MCV 88.8 MCH 28.5 MCHC 32.1 RDW 13.9 Plt Count 326 MPV 7.5 Neut % (Auto) 90.8 H Lymph % (Auto) 3.7 L [place] % (Auto) 5.2 Eos % (Auto) 0.3 Baso % (Auto) 0.1 Neut # (Auto) 8.1 H Lymph # (Auto) 0.3 L [place] # (Auto) 0.5 Eos # (Auto) 0.0 Baso # (Auto) 0.0 Total Counted 100 Neutrophils % (Manual) 93 H Band Neutrophils % 1.0 Lymphocytes % (Manual) 3 L Monocytes % (Manual) 3 Platelet Estimate Normal RBC Morphology Normal PT INR Sodium 134 L Potassium 3.9 Chloride 98 Carbon Dioxide 26 Anion Gap 13.9 BUN 59 H Creatinine 2.94 H Estimated Creat Clear 30 Estimated GFR 21 L Est GFR ( Amer) 25 L Glucose 188 H Calcium 8.9 Total Bilirubin 0.4 AST 84 H ALT 87 H Alkaline Phosphatase 110 B-Natriuretic Peptide 231 H Total Protein 7.2 Albumin 3.1 L Globulin 4.1 H Albumin/Globulin Ratio 0.8 L Blood Type Blood Type Confirm DS: Diagnosis - Discharge Diagnosis (1) Pneumoperitoneum Status: Acute (2) COPD with exacerbation Status: Acute (3) Warfarin-induced coagulopathy Status: Acute (4) Abdominal distention Status: Acute (5) Urinary retention Status: Acute (6) UTI (urinary tract infection), bacterial Status: Suspected (7) Acute kidney injury Status: Acute (8) Chronic atrial fibrillation Status: Acute (9) Right lower lobe pneumonia Status: Acute Discharge Plan - Patient Discharge Instructions ACTIVITY: Continue current activity DIET: NPO - Follow up Plan Disposition: Xfer Short-Term Hosp Home Medications: Home Medications Medication Instructions Recorded Confirmed Type atenolol 50 mg tablet 50 mg PO BID 05/21/17 12/14/17 History cholecalciferol (vitamin D3) 5,000 5,000 unit PO ONCE 05/21/17 12/14/17 History unit capsule donepezil 10 mg tablet 10 mg PO HS 05/21/17 12/14/17 History ezetimibe 10 mg-simvastatin 20 mg 1 tab PO HS 05/21/17 12/14/17 History tablet oxybutynin chloride 5 mg tablet 5 mg PO TID 05/21/17 12/14/17 History tamsulosin 0.4 mg capsule 0.4 mg PO DAILY cap 05/21/17 12/14/17 History oxcarbazepine 300 mg tablet 0.5 tab PO BID tab 09/28/17 12/14/17 History Ciprofloxacin HCl [Cipro 250mg Tab] 250 mg PO BID 12/14/17 12/14/17 History Dicyclomine HCl [Bentyl 10mg 10 mg PO QID 12/14/17 12/14/17 History capsule] Furosemide [Furosemide 40MG tAB] 40 mg PO DAILY 12/14/17 12/14/17 History Lisinopril [Lisinopril 10mg Tab] 10 mg PO DAILY 12/14/17 12/14/17 History Naproxen Sodium [Naproxen ER 500mg 500 mg PO DAILY 12/14/17 12/14/17 History Tab] OXcarbazepine [Oxcarbazepine] 300 mg PO BID 12/14/17 12/14/17 History Warfarin Sodium 1 mg PO DAILY 12/14/17 12/14/17 History Warfarin Sodium 4 mg PO DAILY 12/14/17 12/14/17 History Warfarin Sodium 5 mg PO DAILY 12/14/17 12/14/17 History Warfarin Sodium [Coumadin 3mg 3 mg PO DAILY 12/14/17 12/14/17 History tablet] predniSONE [Prednisone 20mg 20 mg PO DAILY 12/14/17 12/14/17 History Tab] Prescriptions/Medication Reconciliation: No Action ezetimibe 10 mg-simvastatin 20 mg tablet 1 tab PO HS atenolol 50 mg tablet 50 mg PO BID oxybutynin chloride 5 mg tablet 5 mg PO TID donepezil 10 mg tablet 10 mg PO HS cholecalciferol (vitamin D3) 5,000 unit capsule 5,000 unit PO ONCE oxcarbazepine 300 mg tablet 0.5 tab PO BID tab tamsulosin 0.4 mg capsule 0.4 mg PO DAILY cap Ciprofloxacin HCl [Cipro 250mg Tab] 250 mg PO BID Warfarin Sodium [Coumadin 3mg tablet] 3 mg PO DAILY Dicyclomine HCl [Bentyl 10mg capsule] 10 mg PO QID predniSONE [Prednisone 20mg Tab] 20 mg PO DAILY OXcarbazepine [Oxcarbazepine] 300 mg PO BID Warfarin Sodium 1 mg PO DAILY Lisinopril [Lisinopril 10mg Tab] 10 mg PO DAILY Furosemide [Furosemide 40MG tAB] 40 mg PO DAILY Warfarin Sodium 4 mg PO DAILY Warfarin Sodium 5 mg PO DAILY Naproxen Sodium [Naproxen ER 500mg Tab] 500 mg PO DAILY
== END 2017-12-14 20:07 | disposition short-term general hospital (02) ==
LOC: 2ND
PROVIDERS: ADMIT Family Medicine; ATTEND Family Medicine

== ENCOUNTER → 2018-03-03 15:30 | Outpatient (CLI) | payer MEDICARE, SELFPAY ==
[2018-03-03 15:59] LABS: Alanine Aminotransferase 37 U/L (12-78); Albumin Level 3.1 gm/dL (3.4-5.0); Albumin/Globulin Ratio 0.7 (1.1-1.8); Alkaline Phosphatase 139 U/L (46-116); Anion Gap 13.8 mEq/L (5-15); Aspartate Amino Transferase 25 U/L (15-37); Bilirubin,Total 0.2 mg/dL (0.2-1.0); Blood Urea Nitrogen 26 mg/dL (7-18); Calcium 9.2 mg/dL (8.5-10.1); Carbon Dioxide 28 mmol/L (21.0-32.0); Chloride 101 mmol/L (98-107); Creatinine,Serum 1.51 mg/dL (0.70-1.30); Estimated Glomerular Filt Rate 45 ml/min (>60); GFR (African American) 55 ML/MIN (>60); Globulin 4.3 gm/dl (1.3-3.2); Glucose 116 mg/dL (74-106); Magnesium 1.7 mg/dL (1.4-2.2); Potassium 4.8 mmoL/L (3.5-5.1); Sodium 138 mmol/L (136-145); Thyroid Stimulating Hormone 1.14 uIU/ml (0.358-3.740); Total Protein,Serum 7.4 gm/dL (6.4-8.2)
[2018-03-03 16:05] LABS: Basophils % 0.4 % (0.1-2.0); Eosinophils # 0.1 K/mm3 (0.0-0.4); Eosinophils % 1.4 % (0.1-12.0); Hematocrit 29.6 % (42.0-52.0); Hemoglobin 9.3 g/dL (14.1-18.0); Lymphocytes # 1.2 K/mm3 (0.7-4.5); Lymphocytes % 30.9 % (10-50); Mean Corpuscular HGB Conc 31.4 g/dL (31.8-35.4); Mean Corpuscular Hemoglobin 27.7 pg (27.0-31.2); Mean Corpuscular Volume 88.3 fl (80-94); Monocytes # 0.3 K/mm3 (0.1-1.0); Monocytes % 7.4 % (1.7-9.3); Neutrophils # 2.3 K/mm3 (1.8-7.8); Neutrophils % 59.8 % (37.0-80.0); Platelet Count 293 K/mm3 (142-424); Red Blood Count 3.35 M/mm3 (4.60-6.20); Red Cell Distribution Width 16.3 % (11.5-17.5); White Blood Count 3.9 K/mm3 (4.8-10.8)
== END ==
PROVIDERS: Visit Provider Physician Assistant
DX: I48.91 Unspecified atrial fibrillation (principal); I10 Essential (primary) hypertension
CPT/HCPCS: 36415; 80053; 83735; 84443; 85025

== ENCOUNTER → 2018-03-18 12:20 | Outpatient (CLI) | payer MEDICARE, SELFPAY ==
[2018-03-18 12:46] LABS: Anion Gap 14.5 mEq/L (5-15); Blood Urea Nitrogen 37 mg/dL (7-18); Calcium 9.1 mg/dL (8.5-10.1); Carbon Dioxide 27 mmol/L (21.0-32.0); Chloride 104 mmol/L (98-107); Creatinine,Serum 1.63 mg/dL (0.70-1.30); Estimated Glomerular Filt Rate 41 ml/min (>60); GFR (African American) 50 ML/MIN (>60); Glucose 125 mg/dL (74-106); Potassium 5.5 mmoL/L (3.5-5.1); Sodium 140 mmol/L (136-145)
[2018-03-18 13:51] LABS: Basophils % 0.4 % (0.1-2.0); Eosinophils % 0.7 % (0.1-12.0); Hematocrit 31.4 % (42.0-52.0); Hemoglobin 9.7 g/dL (14.1-18.0); Lymphocytes % 19.9 % (10-50); Mean Corpuscular HGB Conc 30.9 g/dL (31.8-35.4); Mean Corpuscular Hemoglobin 26.8 pg (27.0-31.2); Mean Corpuscular Volume 86.7 fl (80-94); Mean Platelet Volume 7.3 fl (7.4-10.4); Monocytes # 0.4 K/mm3 (0.1-1.0); Monocytes % 7.2 % (1.7-9.3); Neutrophils # 3.7 K/mm3 (1.8-7.8); Neutrophils % 71.7 % (37.0-80.0); Platelet Count 286 K/mm3 (142-424); Red Blood Count 3.62 M/mm3 (4.60-6.20); Red Cell Distribution Width 14.9 % (11.5-17.5); White Blood Count 5.1 K/mm3 (4.8-10.8)
== END ==
LOC: LAB 12:21 → RT 12:24
PROVIDERS: PCP Family Medicine; Visit Provider Physician Assistant
DX: I48.91 Unspecified atrial fibrillation (principal); N17.8 Other acute kidney failure; D64.9 Anemia, unspecified
CPT/HCPCS: 36415; 80048; 85025; 93005

== ENCOUNTER → 2018-03-25 11:28 | Outpatient (CLI) | payer MEDICARE, SELFPAY ==
[2018-03-25 13:25] LABS: Ferritin 48 ng/mL (8-388)
[2018-03-26 07:16] LABS: Iron 16 ug/dL (38-169); UIBC 266 ug/dL (111-343)
[2018-03-27 21:47] LABS: CEA 0.9 ng/mL (0.0-4.7); Iron Saturation 6 % (15-55)
== END ==
PROVIDERS: Visit Provider Internal Medicine Medical Oncology
DX: C18.9 Malignant neoplasm of colon, unspecified (principal)
CPT/HCPCS: 36415; 82378; 82728; 83540; 83550

== ENCOUNTER → 2018-04-02 09:08 | Outpatient (CLI) | payer MEDICARE, SELFPAY ==
[2018-04-02 09:12] VITALS: BMI 30.4
[2018-04-02 09:39] LABS: Blood Urea Nitrogen 32 mg/dL (7-18); Creatinine Clearance Estimated 48 mL/min (50-200); Creatinine,Serum 1.59 mg/dL (0.70-1.30); Estimated Glomerular Filt Rate 43 ml/min (>60); GFR (African American) 51 ML/MIN (>60)
== END ==
PROVIDERS: Visit Provider Internal Medicine Medical Oncology
DX: C18.9 Malignant neoplasm of colon, unspecified (principal)
CPT/HCPCS: 82565; 84520

== ENCOUNTER → 2018-04-06 08:44 | Outpatient (CLI) | payer MEDICARE, SELFPAY ==
--- NOTE | 2018-04-06 08:50 | CT_ITS ---
CT abdomen pelvis wo con CLINICAL INDICATION: Follow-up colon cancer ITS.REASON: COLON CA ORDERING PHYSICIAN: Cassidy Valdes MD PATIENT AGE: 78 years COMPARISON: 12/14/2017 TECHNIQUE: Axial images obtained with sagittal and coronal reformats. All CT scans at the facility use one or more dose reduction, viz: automated exposure control, ma/kV adjustment per patient size (including targeted exams where dose is matched to indication, i.e. head), or iterative reconstruction technique. PROCEDURE: Oral Contrast: None IV Contrast: None . FINDINGS: The liver, spleen, adrenal glands, and pancreas have an unremarkable unenhanced appearance. There are bilateral renal cyst with some minimal calcification in the dominant left renal cyst. The cyst measures 4.4 x 4.3 cm and is not significantly changed. Hyperdense nodule projects off the lower pole left kidney laterally at 1 cm. Bilateral lobulated right renal cyst is present 5 cm. There are postsurgical changes of the anterior abdominal wall. There has been a prior colectomy with Chandler's pouch present. There is a right lower quadrant ileostomy. No intestinal obstruction or free air is evident. There is a ill-defined 2.2 cm soft tissue density in the mid abdominal region as seen on axial image #78. This could be postsurgical or could be due to a small lymph node. A mesenteric metastatic implant is an additional consideration. Additional soft tissue density is present posterior to the small bowel in the right lower quadrant could also be due to postsurgical change. There is significant artifact from bilateral hip prostheses. There is mild wedging involving T12 unchanged. IMPRESSION: 1. Postsurgical changes from prior colectomy with Chandler's pouch. 2. 2 cm soft tissue density in the mid abdominal region and right lower quadrant posterior to the small bowel. This could be due to postsurgical change, lymph node, or mesenteric metastatic implant. Continued follow-up is recommended. 3. Postsurgical changes of the abdominal wall with right lower quadrant ileostomy
--- NOTE | 2018-04-06 08:50 | CT_ITS ---
CT chest wo con HISTORY: Follow-up colon cancer ITS.REASON: COLON CA ORDERING PHYSICIAN: Cassidy Valdes MD PATIENT AGE: 78 years COMPARISON: 12/14/2017 Technique: Axial images obtained with sagittal and coronal reformats. All CT scans at the facility use one or more dose reduction, viz: automated exposure control, ma/kV adjustment per patient size (including targeted exams where dose is matched to indication, i.e. head), or iterative reconstruction technique. FINDINGS: There is tortuosity of the thoracic aorta with mild dilatation of the ascending aorta measuring up to 4.3 cm. Artifact is present from cardiac pacemaker device. Normal heart size. No evidence of pericardial effusion. There are coronary artery calcifications. No mediastinal or hilar mass. No adenopathy there is a 5 mm noncalcified nodular density in the right middle lobe medially. Atelectatic changes are present in the right lower lobe. There is a small left pleural effusion and there are atelectatic changes in the left lung base. No suspicious pulmonary nodules are evident. There are wedge compression changes involving T12 which are not significantly changed. IMPRESSION: 1. No convincing evidence of pulmonary metastasis. 2. Bilateral lower lobe atelectatic changes with small left pleural effusion
== END ==
PROVIDERS: PCP Family Medicine; Visit Provider Internal Medicine Medical Oncology
DX: C18.9 Malignant neoplasm of colon, unspecified (principal); Z03.89 Encounter for observation for other suspected diseases and conditions ruled out
CPT/HCPCS: 71250; 74176

== ENCOUNTER → 2018-05-31 15:53 | Outpatient (CLI) | payer MEDICARE, SELFPAY ==
[2018-05-31 17:07] LABS: Thyroid Stimulating Hormone 1.59 uIU/ml (0.358-3.740)
== END ==
PROVIDERS: Visit Provider Specialist
DX: G40.909 Epilepsy, unspecified, not intractable, without status epilepticus (principal); I48.2 Chronic atrial fibrillation
CPT/HCPCS: 36415; 84443

== ENCOUNTER → 2018-07-29 12:03 | Outpatient (CLI) | payer MEDICARE, SELFPAY ==
[2018-07-29 13:09] LABS: Basophils % 0.6 % (0.1-2.0); Eosinophils # 0.1 K/mm3 (0.0-0.4); Eosinophils % 3.1 % (0.1-12.0); Hematocrit 36.6 % (42.0-52.0); Lymphocytes # 1.3 K/mm3 (0.7-4.5); Lymphocytes % 32.7 % (10-50); Mean Corpuscular HGB Conc 32.7 g/dL (31.8-35.4); Mean Corpuscular Hemoglobin 28.6 pg (27.0-31.2); Mean Corpuscular Volume 87.4 fl (80-94); Mean Platelet Volume 7.3 fl (7.4-10.4); Monocytes # 0.3 K/mm3 (0.1-1.0); Monocytes % 6.5 % (1.7-9.3); Neutrophils # 2.2 K/mm3 (1.8-7.8); Neutrophils % 57.1 % (37.0-80.0); Platelet Count 193 K/mm3 (142-424); Red Blood Count 4.18 M/mm3 (4.60-6.20); Red Cell Distribution Width 15.1 % (11.5-17.5); White Blood Count 3.8 K/mm3 (4.8-10.8)
[2018-07-29 13:49] LABS: Alanine Aminotransferase 37 U/L (12-78); Albumin Level 3.8 gm/dL (3.4-5.0); Alkaline Phosphatase 119 U/L (46-116); Aspartate Amino Transferase 22 U/L (15-37); Bilirubin,Total 0.2 mg/dL (0.2-1.0); Blood Urea Nitrogen 38 mg/dL (7-18); Calcium 8.8 mg/dL (8.5-10.1); Carbon Dioxide 30 mmol/L (21.0-32.0); Chloride 106 mmol/L (98-107); Creatinine,Serum 1.73 mg/dL (0.70-1.30); Estimated Glomerular Filt Rate 39 ml/min (>60); Ferritin 33 ng/mL (8-388); GFR (African American) 47 ML/MIN (>60); Globulin 3.8 gm/dl (1.3-3.2); Glucose 105 mg/dL (74-106); Sodium 140 mmol/L (136-145); Total Protein,Serum 7.6 gm/dL (6.4-8.2)
[2018-07-30 08:18] LABS: Iron 46 ug/dL (38-169); Iron Saturation 15 % (15-55); UIBC 252 ug/dL (111-343)
[2018-07-30 10:12] LABS: CEA 1.5 ng/mL (0.0-4.7)
== END ==
PROVIDERS: Visit Provider Internal Medicine Medical Oncology
DX: C18.9 Malignant neoplasm of colon, unspecified (principal)
CPT/HCPCS: 36415; 80053; 82378; 82728; 83540; 83550; 85025

== ENCOUNTER → 2018-10-22 08:50 | Outpatient (CLI) | payer MEDICARE, SELFPAY ==
--- NOTE | 2018-10-22 09:11 | CT_ITS ---
CT abdomen pelvis wo con CLINICAL INDICATION: Follow-up colon cancer ITS.REASON: COLON CA ORDERING PHYSICIAN: Cassidy Valdes MD PATIENT AGE: 78 years COMPARISON: 04/06/2018 TECHNIQUE: Axial images obtained with sagittal and coronal reformats. All CT scans at the facility use one or more dose reduction, viz: automated exposure control, ma/kV adjustment per patient size (including targeted exams where dose is matched to indication, i.e. head), or iterative reconstruction technique. FINDINGS: There are atelectatic changes in the lung bases. Pacemaker is present The liver, gallbladder, spleen, adrenal glands, and pancreas have an unremarkable unenhanced CT appearance. There are bilateral renal cysts. The largest cyst on the right is 5.8 cm. Largest cyst on the left is 4.7 cm with some calcification centrally. These do not appear significantly changed. No renal or ureteral calculi. Status post colectomy with Chandler's pouch. There is a right lower quadrant ileostomy. There is a small rounded soft tissue density in the central aspect of the upper pelvis anteriorly measuring 16 mm previously measuring 22 mm. No new mesenteric nodules are evident. Artifact is present from bilateral hip prosthesis. There are few small lymph nodes in the inguinal areas. There is mild wedge compression change of T12 not significant change. IMPRESSION: 1. Overall stable CT appearance of the abdomen and pelvis. 2. Status post partial colectomy with Cahndler's pouch. Soft tissue nodule remains within the upper pelvic region. This however is slightly decreased in size and could represent postsurgical changes or a shrinking mesenteric implant or lymph node.
[2018-10-22 10:39] LABS: Blood Urea Nitrogen 36 mg/dL (7-18); Creatinine,Serum 1.91 mg/dL (0.70-1.30); Estimated Glomerular Filt Rate 34 ml/min (>60); GFR (African American) 42 ML/MIN (>60)
== END ==
PROVIDERS: PCP Family Medicine; Visit Provider Internal Medicine Medical Oncology
DX: C18.9 Malignant neoplasm of colon, unspecified (principal)
CPT/HCPCS: 36415; 74176; 82565; 84520

== ENCOUNTER → 2018-12-02 12:12 | Outpatient (CLI) | payer MEDICARE, SELFPAY ==
[2018-12-02 13:58] LABS: Prostate Specific Ag, Diagnost < 0.05 ng/mL (0.0-4.0)
== END ==
PROVIDERS: Visit Provider Urology
DX: C61 Malignant neoplasm of prostate (principal)
CPT/HCPCS: 36415; 84153

== ENCOUNTER → 2019-03-10 12:36 | Outpatient (CLI) | payer MEDICARE, SELFPAY ==
[2019-03-10 13:03] LABS: Basophils % 0.6 % (0.1-2.0); Eosinophils # 0.1 K/mm3 (0.0-0.4); Eosinophils % 2.8 % (0.1-12.0); Hematocrit 37.1 % (42.0-52.0); Hemoglobin 12.3 g/dL (14.1-18.0); Lymphocytes # 1.1 K/mm3 (0.7-4.5); Lymphocytes % 28.8 % (10-50); Mean Corpuscular HGB Conc 33.1 g/dL (31.8-35.4); Mean Corpuscular Hemoglobin 30.5 pg (27.0-31.2); Mean Corpuscular Volume 92.2 fl (80-94); Mean Platelet Volume 8.5 fl (7.4-10.4); Monocytes # 0.3 K/mm3 (0.1-1.0); Monocytes % 8.4 % (1.7-9.3); Neutrophils # 2.3 K/mm3 (1.8-7.8); Neutrophils % 59.4 % (37.0-80.0); Platelet Count 196 K/mm3 (142-424); Red Blood Count 4.03 M/mm3 (4.60-6.20); Red Cell Distribution Width 13.5 % (11.5-17.5); White Blood Count 3.8 K/mm3 (4.8-10.8)
[2019-03-10 14:33] LABS: Alanine Aminotransferase 33 U/L (12-78); Albumin Level 3.8 gm/dL (3.4-5.0); Albumin/Globulin Ratio 1.2 (1.1-1.8); Alkaline Phosphatase 112 U/L (46-116); Anion Gap 14.3 mEq/L (5-15); Aspartate Amino Transferase 25 U/L (15-37); Bilirubin,Total 0.3 mg/dL (0.2-1.0); Blood Urea Nitrogen 37 mg/dL (7-18); Calcium 8.9 mg/dL (8.5-10.1); Carbon Dioxide 27 mmol/L (21.0-32.0); Chloride 107 mmol/L (98-107); Creatinine,Serum 1.76 mg/dL (0.70-1.30); Estimated Glomerular Filt Rate 38 ml/min (>60); GFR (African American) 46 ML/MIN (>60); Globulin 3.2 gm/dl (1.3-3.2); Glucose 100 mg/dL (74-106); Potassium 5.3 mmoL/L (3.5-5.1); Sodium 143 mmol/L (136-145)
[2019-03-17 05:19] LABS: CEA 1.9 ng/mL (0.0-4.7)
== END ==
PROVIDERS: Visit Provider Internal Medicine Medical Oncology
DX: D64.9 Anemia, unspecified (principal); R53.82 Chronic fatigue, unspecified; Z85.038 Personal history of other malignant neoplasm of large intestine
CPT/HCPCS: 36415; 80053; 82378; 85025

== ENCOUNTER → 2019-05-05 10:02 | Outpatient (CLI) | payer MEDICARE, SELFPAY ==
[2019-05-05 11:28] LABS: Blood Urea Nitrogen 36 mg/dL (7-18); Creatinine,Serum 1.72 mg/dL (0.70-1.30); Estimated Glomerular Filt Rate 39 ml/min (>60); GFR (African American) 47 ML/MIN (>60)
== END ==
PROVIDERS: Visit Provider Internal Medicine Medical Oncology
DX: Z01.818 Encounter for other preprocedural examination (principal)
CPT/HCPCS: 36415; 82565; 84520

== ENCOUNTER → 2019-05-06 10:06 | Outpatient (CLI) | payer MEDICARE, SELFPAY ==
--- NOTE | 2019-05-06 | CT_ITS ---
PROCEDURE: CT CHEST WO CON CLINICAL INDICATION: COLON CANCER Follow-up colon cancer COMPARISON: CHESTWO CT chest wo con from 12/14/[address] chest wo con from 04/06/[address] abdomen pelvis wo con from 10/22/2018 CT ABDOMEN PELVIS WO CON from 05/06/2019 TECHNIQUE: Axial images obtained with sagittal and coronal reformats. All CT scans at the facility use one or more dose reduction, viz: automated exposure control, ma/kV adjustment per patient size (including targeted exams where dose is matched to indication, i.e. head), or iterative reconstruction technique. FINDINGS: There are coronary artery calcifications. Artifact is present from cardiac pacemaker. Contrast is present within the esophagus which could be due to reflux or dysmotility. No mediastinal or hilar mass or adenopathy. There are atelectatic changes in the lung base on the right. A 6 mm oval nodular opacity is present in the right middle lobe inferiorly which is stable. There is elevation of the right hemidiaphragm. No acute bony anomalies are evident. There are degenerative changes in the thoracic spine as before. IMPRESSION: Overall no significant change with no convincing evidence of metastatic disease Dictated by: Sonu Rivera MD 05/08/2019 06:44 Electronically signed by Sonu Rivera MD in [place] 05/08/2019 06:44
--- NOTE | 2019-05-06 10:14 | CT_ITS ---
PROCEDURE: CT ABDOMEN PELVIS WO CON CLINICAL INDICATION: COLON CANCER Follow-up [facility] 10[facility]22[facility] TECHNIQUE: Axial images obtained with sagittal and coronal reformats. All CT scans at the facility use one or more dose reduction, viz: automated exposure control, ma/kV adjustment per patient size (including targeted exams where dose is matched to indication, i.e. head), or iterative reconstruction technique. FINDINGS: The liver, spleen, adrenal glands, and pancreas have an unremarkable appearance. There are bilateral renal cysts present. A thin linear area of calcification is noted in the left renal cyst. These are not significantly changed. Largest cyst on the right is at 5.7 cm. There has been prior subtotal colectomy with a Compa's pouch present. Right lower quadrant ileostomy is noted. No intestinal obstruction or free air. Artifact is present from bilateral hip prosthesis. There is wedge compression change of L1 which has developed since the previous exam with loss of height anteriorly of approximately 40 percent and minimal retropulsion of the posterior superior aspect of the L1 vertebral body. There is chronic wedging of T12. IMPRESSION: 1. Postsurgical changes. No convincing evidence of intra-abdominal metastatic disease. 2. There is wedge compression change of L1 which has developed since the previous exam with loss of height anteriorly of approximately 40 percent and minimal retropulsion of the posterior superior aspect of the L1 vertebral body. Dictated by: Sonu Rivera MD 05/08/2019 07:00 Electronically signed by Sonu Rivera MD in [place] 05/08/2019 07:00
== END ==
PROVIDERS: PCP Family Medicine; Visit Provider Internal Medicine Medical Oncology
DX: C18.9 Malignant neoplasm of colon, unspecified (principal)
CPT/HCPCS: 71250; 74176

== ENCOUNTER → 2019-06-02 14:57 | Outpatient (CLI) | payer MEDICARE, SELFPAY ==
[2019-06-02 17:42] LABS: Prostate Specific Ag, Diagnost < 0.064 ng/ml (0.0-4.0)
== END ==
PROVIDERS: Visit Provider Urology
DX: C61 Malignant neoplasm of prostate (principal)
CPT/HCPCS: 36415; 84153

== ENCOUNTER → 2019-09-02 08:48 | Outpatient (CLI) | payer MEDICARE, SELFPAY ==
[2019-09-02 09:42] LABS: Blood Urea Nitrogen 34 mg/dl (9-20); Estimated Glomerular Filt Rate 42 ml/min (>60); GFR (African American) 51 ML/MIN (>60)
--- NOTE | 2019-09-02 10:01 | CT_ITS ---
PROCEDURE: CT CHEST WO/W CON CLINCAL INDICATION: COLON CANCER F/U Follow-up colon cancer COMPARISON: CT CHEST WO CON from 05/06/2019 CT ABDOMEN PELVIS WO/W CON from 09/02/2019 TECHNIQUE: IV Contrast: 75ml Optiray 350 Axial images obtained with sagittal and coronal reformats. All CT scans at the facility use one or more dose reduction, viz: automated exposure control, ma/kV adjustment per patient size (including targeted exams where dose is matched to indication, i.e. head), or iterative reconstruction technique. FINDINGS: HEART AND MEDIASTINAL STRUCTURES: Mild ectasia of the ascending aorta as previously described not significantly changed measuring up to 4 cm in AP dimension the. Coronary artery calcifications are present. There is mild cardiomegaly. No mediastinal or hilar mass or adenopathy. Nonspecific thickening of the GE junction the. LUNGS AND PLEURAL SPACES: Elevation of the right hemidiaphragm posteriorly with right basilar atelectasis. No suspicious pulmonary nodules. Previously described nodular opacity in the right middle lobe is unchanged. BONY STRUCTURES: Degenerative changes thoracic spine UPPER ABDOMEN: Please see abdomen report ADDITIONAL FINDINGS: No other significant abnormalities. IMPRESSION: Stable CT appearance of the chest with no convincing evidence of metastatic disease Dictated by: Sonu Rivera MD 09/03/2019 11:23 Electronically signed by Sonu Rivera MD in [facility] 09/03/2019 11:23
--- NOTE | 2019-09-02 10:01 | CT_ITS ---
PROCEDURE: CT ABDOMEN PELVIS WO/W CON CLINICAL INDICATION: COLON CANCER F/U COMPARISON: CT ABDOMEN PELVIS WO CON from 05/06/2019 TECHNIQUE: IV Contrast: 75ML OPTIRAY 350 Oral Contrast 450ml Redicat Axial images obtained with sagittal and coronal reformats. All CT scans at the facility use one or more dose reduction, viz: automated exposure control, ma/kV adjustment per patient size (including targeted exams where dose is matched to indication, i.e. head), or iterative reconstruction technique. FINDINGS: LOWER THORAX: No acute finding ABDOMEN & PELVIS: The liver, spleen, adrenal glands, and pancreas have an unremarkable appearance. There are numerous bilateral renal cyst which do not appear significantly changed. 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 There is a right lower quadrant ileostomy. No intestinal obstruction or free air. 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 There is a small abdominal wall hernia in the right para ventral region in the supraumbilical area containing a loop of small bowel. No evidence of bowel obstruction. Small lymph nodes are present in the inguinal area on both sides. There is moderate wedging of L1 vertebral body with greater than 50 percent anterior wedge compression changes slightly increased compared to the previous exam with minimal retropulsion of the posterior superior aspect of L1. IMPRESSION: 1. No convincing evidence of metastatic disease. 2. Postsurgical changes from prior subtotal colectomy. There is a small ventral abdominal wall hernia just in the supraumbilical area containing a loop of small bowel without obstruction 3. Slight increased wedge compression changes of L1. Dictated by: Sonu Rivera MD 09/03/2019 11:36 Electronically signed by Sonu Rivera MD in [facility] 09/03/2019 11:36
== END ==
PROVIDERS: PCP Family Medicine; Visit Provider Internal Medicine Medical Oncology
DX: C18.9 Malignant neoplasm of colon, unspecified (principal); C61 Malignant neoplasm of prostate
CPT/HCPCS: 36415; 71270; 74178; 82565; 84520; Q9967

== ENCOUNTER → 2019-09-29 14:20 | Outpatient (CLI) | payer MEDICARE, SELFPAY ==
[2019-09-29 14:35] LABS: Basophils % 0.7 % (0.1-2.0); Eosinophils # 0.2 K/mm3 (0.0-0.4); Hematocrit 38.9 % (42.0-52.0); Hemoglobin 12.8 g/dL (14.1-18.0); Lymphocytes # 1.3 K/mm3 (0.7-4.5); Lymphocytes % 28.4 % (10-50); Mean Corpuscular HGB Conc 32.9 g/dL (31.8-35.4); Mean Corpuscular Hemoglobin 30.3 pg (27.0-31.2); Mean Corpuscular Volume 92.1 fl (80-94); Mean Platelet Volume 8.1 fl (7.4-10.4); Monocytes # 0.4 K/mm3 (0.1-1.0); Neutrophils # 2.6 K/mm3 (1.8-7.8); Neutrophils % 57.9 % (37.0-80.0); Platelet Count 157 K/mm3 (142-424); Red Blood Count 4.22 M/mm3 (4.60-6.20); Red Cell Distribution Width 13.6 % (11.5-17.5); White Blood Count 4.4 K/mm3 (4.8-10.8)
[2019-09-29 15:37] LABS: Total Iron Binding Capacity 283 ug/dL (261-462)
[2019-09-29 16:04] LABS: Ferritin 46.7 ng/ml (17.9-464)
[2019-09-29 16:20] LABS: Chloride 108 mmol/L (98-107); Potassium 5.7 mmoL/L (3.5-5.1); Sodium 140 mmol/L (136-145)
[2019-09-29 16:22] LABS: Alanine Aminotransferase 21 U/L (12-78); Aspartate Amino Transferase 33 U/L (17-59); Blood Urea Nitrogen 42 mg/dl (9-20); Estimated Glomerular Filt Rate 37 ml/min (>60); GFR (African American) 44 ML/MIN (>60)
[2019-09-29 16:23] LABS: Albumin/Globulin Ratio 1.5 (1.1-1.8); Alkaline Phosphatase 82 U/L (38-126); Anion Gap 10.7 mEq/L (5-15); Bilirubin,Total 0.3 mg/dl (0.2-1.3); Calcium 9.2 mg/dl (8.4-10.2); Carbon Dioxide 27 mmol/L (22.0-30.0); Globulin 2.7 g/dL (1.3-3.2); Glucose 112 mg/dl (74-100); Iron 82 ug/dL (49-181); Total Protein,Serum 6.7 g/dl (6.3-8.2)
== END ==
PROVIDERS: Visit Provider Internal Medicine Medical Oncology
DX: C18.9 Malignant neoplasm of colon, unspecified (principal)
CPT/HCPCS: 36415; 80053; 82728; 83540; 83550; 85025

== ENCOUNTER → 2019-10-27 11:21 | Outpatient (CLI) | payer MEDICARE, SELFPAY ==
--- NOTE | 2019-10-27 | CA_ITS ---
APPROVED REPORT Exam: Pharmacologic Technologist: Christine Ruelas, Ht: 5 ft 6 in Wt: 204 lbs BSA: 2.02 m2 HR: 61 bpm BP: 154/92 mmHg Rhythm: ELECTRONICALLY PACED RHYTHM Medical History Medical History: HTN, Hyperlipidemia Medications: Asa,,,,, Atorvastatin,,,,, Iron,,,,, SyMBICORT,,,,, Albuterol,,,,, Vit D3,,,,, Famotidine,,,,, Bisprolol,,,,, LoraTADINE,,,,, DONEPEZIL,,,,, ElIgard,,,,, LoperMIDE,,,,, Allergies: No known drug allergies Previous Cardiac Procedures: Pacemaker Stress Test Details Test: LEXISCAN HR Resting HR: 60 bpm Max Heart Rate (APMHR): 143 bpm Max HR Achieved: 90 bpm Target HR (85% APMHR): 121 bpm % of APMHR: 62 Recovery HR: 60 bpm BP Resting BP: 154.0/92.0 mmHg Max BP: 154.0/92.0 mmHg Recovery BP: 131.0/78.0 mmHg ECG Resting ECG: ELECTRONICALLY PACED Clinical Exercise duration: 04:01 min Highest Stage Achieved: Exercise capacity: 1.0 METs Stress ECG Conclusion DURING INFUSION OF LEXISCAN PATIENT HAD MILD SOA BUT NO CHEST PAIN. WITH INCREASED HEART RATE HIS FALSE PASS RHYTHM TOOK OVER WITH A LONG FIRST DEGREE AVB. NON-DIAGNOSTIC LEXISCAN STRESS. MYOVIEW IMAGES REPORTED SEPARATELY. Test Summary REST . . . . . . . Sitting REST 04:55 . . 60 . 154/ 92 . . Stage 1 . . . . . . . Cardiolite injected Stage 1 01:00 . . 60 . . . . Stage 2 01:00 . . 65 . . . . Stage 3 01:00 . . 60 . 134/ 84 . . Stage 4 01:00 . . 60 . . . . Stage 4 01:01 . . 60 . . . Stop exercise at 04:01 RECOVERY 01:00 . . 60 . 131/ 78 . . RECOVERY 02:00 . . 60 . 136/ 76 . . RECOVERY 03:00 . . 68 . 130/ 71 . . RECOVERY 03:34 . . 60 . 130/ 71 . . Electronically signed by : Chidi Guillermo, 10/27/2019 14:31:51
--- NOTE | 2019-10-27 11:29 | CA_ITS ---
APPROVED REPORT EXAM: Comprehensive 2D, Doppler, and color-flow Echocardiogram Airplane Flight Attendant Supervisor: Azeb Ken RDCS Ht: 5 ft 6 in Wt: 204lbs BSA: 2.02 BP: 128/94 mmHg Indications: PAF,CAD,ABN EKG,SOA,EX SMOKER,HTN,HLP 2D Dimensions LVOT 1.89 cm (M/F) 1.5-2.5 M-Mode Dimensions RVDd 3.31 cm (0.9-2.6) LVDd 5.50 cm (3.5-5.7) LVDs 3.98 cm (3.5-5.7) IVSd 0.72 cm (0.6-1.1) PWd 0.80 cm (0.6-1.1) EF (Teich) 53.10% FS 27.60% EDV (Teich) 147.40 mL ESV (Teich) 69.20 mL LV Diastology E/A Ratio 4.54 Mitral Valve MV A Velocity 18.00 (40-130 cm/s) Left Ventricle Left atrium is mildly enlarged, left ventricle is normal size, mild concentric left ventricular hypertrophy, visually estimated ejection fraction 55% with no regional wall motion abnormality, diastolic parameters are inconclusive. Right Ventricle Right atrium and right ventricle are mildly enlarged with normal contractility, there is a pacemaker lead seen in the right atrium and right ventricle. Aortic Valve Aortic valve is thickened and calcified leaflet continue to display good mobility, there is no aortic stenosis aortic insufficiency. Mitral Valve Mitral valve leaflets are minimally thickened, there is no mitral stenosis, there is mild mitral regurgitation. Tricuspid Valve Tricuspid valve is grossly normal, there is mild tricuspid regurgitation. Tricuspid regurgitation jet velocity is inadequate for calculation of the right ventricular systolic pressure. Pulmonic Valve Pulmonic valve is poorly visualized. Great Vessels Aortic root is normal size. Pericardium No significant pericardial effusion noted. Conclusion 1. Biatrial enlargement, normal left ventricular size, mild concentric left ventricular hypertrophy, visually estimated ejection fraction 55% with no regional wall motion abnormality, diastolic parameters are inconclusive. 2. Mildly enlarged right ventricle with normal contractility. 3. Mild mitral and tricuspid regurgitation. 4. No significant pericardial effusion noted. Electronically signed by : Chidi Guillermo, 10/27/2019 16:29:48
--- NOTE | 2019-10-27 11:55 | NM_ITS ---
APPROVED REPORT Exam: Nuclear Stress Test Indication: short of breath Patient Location: Outpatient Stress Tech: Whit Vegankson [place] Tech:JAYSON Williamson RT(R)(N) Ht: 5 ft 6 in Wt: 190 lbs HR: 61 bpm BP: 154/92 mmHg BSA: 1.96 m2 BMI: 30.6 History: short of breath Procedure: Patient received a 0.4 mg of intravenous Lexiscan, resting heart rate 61 bpm, resting blood pressure 154/92 mmHg, with Lexiscan maximum heart rate achived was 60 bpm which is Less than 85 % of the maximum predicted heart rate and blood pressure was 134/84 mmHg. With Lexiscan, patient denied any complaint of chest pain. Electrocardiogram Resting electrocardiogram showed electronically paced rhythm, with increased heart rate [place] rhythm was seen, nonspecific ST-T changes seen. With Lexiscan there is less than 1.[address] segment depression noted from the baseline EKG. The EKG portion of the Lexiscan Myoview is nondiagnostic. Cardiac Stress and Resting SPECT Images: Cardiac Stress and Resting SPECT images were obtained using technetium 99m Myoview 32.4 mCi stress and 10.50 mCi at rest. Gated SPECT with analysis of segmental wall motion and calculation of the ejection fraction also done. Cardiac stress and resting SPECT images show a fixed defect anterior apically with normal contractility gated SPECT is likely secondary to soft tissue attenuation, in addition there is reversible ischemia seen involving the inferior wall. Computer derived ejection fraction is 65% with no regional wall motion abnormality, right ventricle is normal size and contractility. Conclusion: 1. The EKG portion of the Lexiscan Myoview is nondiagnostic. 2. Scintigraphic evidence of mild reversible ischemia seen involving the inferior wall, computer derived ejection fraction is 65% with no regional wall motion abnormality, right ventricle is normal size and contractility. 3. Abnormal Lexiscan Myoview study. Electronically signed by : Chidi Guillermo, 10/28/2019 10:00:25
== END ==
PROVIDERS: PCP Family Medicine; Visit Provider Nurse Practitioner Family
DX: I25.10 Atherosclerotic heart disease of native coronary artery without angina pectoris (principal); R06.00 Dyspnea, unspecified; R94.31 Abnormal electrocardiogram [ECG] [EKG]; Z95.0 Presence of cardiac pacemaker
CPT/HCPCS: 78452; 93017; 93306

== ENCOUNTER 2019-11-08 07:57 | Day surgery (SDC) | payer MEDICARE, SELFPAY ==
[2019-11-08] VITALS (13 sets, daily range): BP systolic 107–164; BP diastolic 65–97; PULSE 49–62; RESP 16; TEMP 36.6; O2SAT 94–100; BMI 33.2
[2019-11-08 08:58] LABS: Chloride 105 mmol/L (98-107); Potassium 4.9 mmoL/L (3.5-5.1); Sodium 141 mmol/L (136-145)
--- NOTE | 2019-11-08 09:00 | IR_ITS ---
APPROVED REPORT Patient Location: Outpatient Vp Business Development: JAYSON Ryan RT (R) PROCEDURES Left heart catheterization Left ventriculogram Selective coronary angiogram Drug-eluting stent deployment to the proximal LAD INDICATION Angina pectoris, Coronary artery disease Informed consent was obtained prior to the procedure. COMPLICATIONS None Estimated Blood Loss: less than 10 ml TECHNIQUE One percent lidocaine used to anesthetize the right anterior aspect of the wrist. The right radial artery was accessed via the Seldinger technique. A 6 Urdu sheath was placed in the right radial artery. 2.5 mg of verapamil, 800 mcg of nitroglycerin, 1mg Lidocaine and 5000 U Heparin were given through the arterial sheath. The trap catheter was also used to perform left heart catheterization, left ventriculogram and selective coronary angiogram. At the end the diagnostic angiogram therapeutic heparin was administered along with Brilinta 180 mg. And I Brenda left guide catheter was placed in the left main artery and a Choice PT extra-support wire was placed distally into the LAD. A 3.5 x 23 mm drug-eluting Xience stent was deployed at 16 carley reducing the stenosis. A 4.5 x 12 mm balloon was then placed proximally deployed at 16 carley and then at mid segment and deployed at 14 carley to post dilate. SERA-3 flow was present before and after the procedure. At the end of the procedure the apparatus was removed the sheath was removed good hemostasis was achieved using TR banding patient was transferred to the postop holding her in stable condition ANGIOGRAPHIC RESULTS The left main artery Normal The left anterior descending artery Has a proximal 70% concentric stenosis which extends distal to a large first diagonal artery. The remaining LAD has mild disease. The large first diagonal artery appears free of disease and after the stent has SERA-3 flow with no angiographic evidence of jailing accompanied by stenosis The circumflex artery Nondominant normal The right coronary artery Large dominant normal The LUIS ventriculogram reveals Normal slightly hyperdynamic at 70% The left ventricular end-diastolic pressure 10 mmHg IMPRESSION Severe proximal LAD disease as described above Successful stenting the proximal ID severe disease reduced to 0% with one drug-eluting stent Hyperdynamic ventricle Normal left ventricular end-diastolic pressure PLAN 1. Brilinta 90 twice daily plus aspirin 81 mg 2. LDL less than 55 3. Cardiac rehabilitation 4. Avoidance of tobacco products 5. Risk factor modification Electronically signed by : Colby Johns, 11/08/2019 11:08:34
[2019-11-08 09:01] LABS: Anion Gap 13.9 mEq/L (5-15); Blood Urea Nitrogen 39 mg/dl (9-20); Carbon Dioxide 27 mmol/L (22.0-30.0); Creatinine Clearance Estimated 55 mL/min (50-200); Estimated Glomerular Filt Rate 45 ml/min (>60); GFR (African American) 55 ML/MIN (>60)
[2019-11-08 09:02] LABS: Calcium 9.5 mg/dl (8.4-10.2); Glucose 117 mg/dl (74-100)
[2019-11-08 09:21] LABS: Coronavirus 19 IgG Antibody Negative (Negative); Coronavirus 19 IgM Antibody Negative (Negative)
[2019-11-08 09:35] LABS: Eosinophils # 0.2 K/mm3 (0.0-0.4); Eosinophils % 4.4 % (0.1-12.0); Hematocrit 39.1 % (42.0-52.0); Hemoglobin 13.1 g/dL (14.1-18.0); Lymphocytes % 24.3 % (10-50); Mean Corpuscular HGB Conc 33.5 g/dL (31.8-35.4); Mean Corpuscular Hemoglobin 31.1 pg (27.0-31.2); Mean Corpuscular Volume 92.9 fl (80-94); Mean Platelet Volume 8.7 fl (7.4-10.4); Monocytes # 0.2 K/mm3 (0.1-1.0); Neutrophils # 2.6 K/mm3 (1.8-7.8); Neutrophils % 64.3 % (37.0-80.0); Platelet Count 165 K/mm3 (142-424); Red Blood Count 4.21 M/mm3 (4.60-6.20); Red Cell Distribution Width 13.9 % (11.5-17.5)
[2019-11-08 12:14] LABS: CATHL Activated Clotting Time 360 SEC (74-125)
--- NOTE | 2019-11-08 15:12 | HMH.PHACLD ---
Chalino David has received discharge medication counseling on the following medications: CONTINUE MEDICATIONS: BISOPROLOL, ATORVASTATIN, ASPIRIN NEW MEDICATIONS: [facility] DOES NOT WANT PATIENT TO START AN CELIA/ARB AT THIS TIME...DOCUMENTED
== END 2019-11-08 14:59 | disposition home or self-care (01) ==
LOC: CATHLAB 07:59
PROVIDERS: PCP Family Medicine; Visit Provider Internal Medicine
DX: I25.118 Atherosclerotic heart disease of native coronary artery with other forms of angina pectoris; I48.0 Paroxysmal atrial fibrillation; J44.1 Chronic obstructive pulmonary disease with (acute) exacerbation; R94.31 Abnormal electrocardiogram [ECG] [EKG]; R94.39 Abnormal result of other cardiovascular function study; Z87.891 Personal history of nicotine dependence; Z95.0 Presence of cardiac pacemaker; Z79.52 Long term (current) use of systemic steroids; Z79.82 Long term (current) use of aspirin; Z79.899 Other long term (current) drug therapy
CPT/HCPCS: 36415; 80048; 85025; 85347; 86328; 92928; 93458; 99152; C1725; C1769; C1875; C9600; J1644; Q9967

== ENCOUNTER → 2019-12-05 14:37 | Outpatient (CLI) | payer MEDICARE, SELFPAY ==
[2019-12-05 16:46] LABS: Prostate Specific Ag, Diagnost < 0.064 ng/ml (0.0-4.0)
== END ==
PROVIDERS: Visit Provider Urology
DX: C61 Malignant neoplasm of prostate (principal)
CPT/HCPCS: 36415; 84153

== ENCOUNTER 2019-12-25 13:37 | Emergency (ER) | payer MEDICARE, MEDICAID, SELFPAY ==
[2019-12-25] VITALS (11 sets, daily range): BP systolic 91–164; BP diastolic 58–100; PULSE 55–78; RESP 15–19; TEMP 36.4–36.8; O2SAT 90–94; BMI 41.5
--- NOTE | 2019-12-25 13:51 | XR_ITS ---
PROCEDURE: XR CHEST PORTABLE CLINICAL HISTORY: dyspnea COMPARISON: CR CXR2V XR chest 2V from 07/14/2017 CR CXR2 XR chest AP from 12/06/2017 CR CXR2V XR chest 2V from 12/14/[address] CHEST WO/W CON from 09/02/2019 FINDINGS: Is obviously markedly obese. This is a poor inspiratory effort resulting in crowding of vascular markings at the right base. I doubt an acute pneumonic infiltrate in either lung field. Cardiac size is borderline, there is no pulmonary congestion and there is no definite pleural fluid. There is a left-sided cardiac pacemaker with dual chamber electrodes both in good position. There are degenerative changes of both shoulders with high-riding humeral heads and mild subacromial stenosis bilaterally. IMPRESSION: Poor inspiration, no definite acute chest pathology noted Dictated by: Dr. Kristian Galvez MD 12/25/2019 15:06 Dr. Kristian Galvez MD in [place] 12/25/2019 15:06
--- NOTE | 2019-12-25 14:19 | HMH.EDGENADL ---
ED Disposition Clinical Impression: CAROL (acute kidney injury), Metabolic acidosis Disposition: Xfer Short-Term Hosp Condition on Discharge: Serious Additional Instructions: Given patient's profound renal failure and uncompensated metabolic acidosis patient will be transferred to [facility] ER under the care of . Patient has been treated for acute hyperkalemia with D50, IV regular insulin, sodium bicarb, Kayexalate, and patient has been initiated on bicarb drip. Referrals: Jorge Castaneda MD [Primary Care Provider] - - Critical Care Critical Care Time: No Attestation: On 12/25/19, the high probability of a clinically significant, sudden or life threatening deterioration of the following system(s) required my full and direct attention, intervention and personal management. The time I documented below is in addition to time spent performing reported procedures but includes the following listed in this critical care notation. Medical Decision Making - Medical Records Medical records reviewed: Yes: I reviewed the patient's medical records. - Azeem Inquiry Pt receiving controlled substance: No Vital Signs: 12/25/19 13:39 12/25/19 14:42 12/25/19 16:25 Temperature 97.5 F L Temperature Source Oral Pulse Rate [Right] 62 62 78 Respiratory Rate 18 Blood Pressure [Right Arm] 164/100 H 103/69 L Blood Pressure Mean [Right Arm] 121 80 Blood Pressure Source [Right Arm] Automatic Cuff Blood Pressure Position [Right Arm] Sitting 02 Sat by Pulse Oximetry 93 L 90 L 92 L Oxygen Delivery Method Room Air - Lab Data Lab results reviewed: Yes: I reviewed the patient's lab results. Lab Results 12/25/19 13:52: VBG pH 7.14 L, VBG pCO2 47.8, VBG pO2 46.6 H, VBG HCO3 16.1 L, VBG Total CO2 17.5 L, VBG O2 Saturation 74.6 H, VBG Base Excess -12.9 L 12/25/19 14:10: WBC 9.1, RBC 5.08, Hgb 16.0, Hct 46.6, MCV 91.7, MCH 31.5 H, MCHC 34.4, RDW 13.5, Plt Count 326, MPV 8.4, Neut % (Auto) 80.0, Lymph % (Auto) 9.7 L, [place] % (Auto) 9.7 H, Eos % (Auto) 0.2, Baso % (Auto) 0.4, Neut # (Auto) 7.3, Lymph # (Auto) 0.9, [place] # (Auto) 0.9, Eos # (Auto) 0.0, Baso # (Auto) 0.0 12/25/19 14:10: Sodium 131 L, Potassium 6.2 H*, Chloride 88 L, Carbon Dioxide 18 L, Anion Gap 31.2 H, BUN 148 H*, Creatinine 8.10 H, Estimated Creat Clear 6, Estimated GFR 6 L*, Est GFR ( Amer) 8 L*, Glucose 240 H, Calcium 9.9, Total Bilirubin 0.6, AST 46, ALT 40, Alkaline Phosphatase 108, Troponin I 0.05 H, NT-Pro-B Natriuret Pep 2730 H, Total Protein 8.7 H D, Albumin 4.9, Globulin 3.8 H, Albumin/Globulin Ratio 1.3, TSH 0.40 L 12/25/19 16:10: Lactate 2.2 H Result diagrams: 12/25/19 14:10 12/25/19 14:10 Orders (Tests/Meds): ED MEDICATIONS Discontinued Medications Generic Name Dose Route Start Last Admin Trade Name Freq PRN Reason Stop Dose Admin Dextrose 50 ml 12/25/19 14:59 12/25/19 16:18 Dextrose 50% 50ml Syringe (Crash Cart) IVP 12/25/19 15:00 50 ml ONCE ONE Administration Insulin Human Regular 10 unit 12/25/19 15:01 12/25/19 16:17 Insulin Human Regular 100 Units/Ml 10ml Vial IVP 12/25/19 15:02 10 unit ONCE ONE Administration Sodium Bicarbonate 100 meq 12/25/19 14:59 12/25/19 16:18 Sodium Bicarb 8.4% 50ml Syringe (Crash Cart) IV 12/25/19 15:00 100 meq ONCE ONE Administration ORDERS Category Date Time Status Drug Screen,Urine Stat Lab 12/25/19 13:51 Ordered Troponin I Q3H Lab 12/25/19 16:48 Received Troponin I Q3H Lab 12/25/19 20:00 Ordered Urinalysis and Microscopic Stat Lab 12/25/19 13:51 Ordered - Radiology Data #1 Image(s): Chest Image Reviewed: Yes I reviewed the patient's radiology results, Yes I have reviewed radiologist's interpretation Preliminary Findings: Normal/NAD - ECG Data Tracing #1 ECG initial impression date: 12/25/19 ECG initial impression time: 15:20 ECG normal with no acute: arrhythmias, ischemia, conduction abnormalities, chamber hypertrophy
[2019-12-25 14:30] LABS: Basophils % 0.4 % (0.1-2.0); Eosinophils % 0.2 % (0.1-12.0); Hematocrit 46.6 % (42.0-52.0); Lymphocytes # 0.9 K/mm3 (0.7-4.5); Lymphocytes % 9.7 % (10-50); Mean Corpuscular HGB Conc 34.4 g/dL (31.8-35.4); Mean Corpuscular Hemoglobin 31.5 pg (27.0-31.2); Mean Corpuscular Volume 91.7 fl (80-94); Mean Platelet Volume 8.4 fl (7.4-10.4); Monocytes # 0.9 K/mm3 (0.1-1.0); Monocytes % 9.7 % (1.7-9.3); Neutrophils # 7.3 K/mm3 (1.8-7.8); Platelet Count 326 K/mm3 (142-424); Red Blood Count 5.08 M/mm3 (4.60-6.20); Red Cell Distribution Width 13.5 % (11.5-17.5); White Blood Count 9.1 K/mm3 (4.8-10.8)
[2019-12-25 14:44] LABS: Chloride 88 mmol/L (98-107); Sodium 131 mmol/L (136-145)
[2019-12-25 14:47] LABS: Alanine Aminotransferase 40 U/L (12-78); Albumin Level 4.9 g/dl (3.5-5.0); Albumin/Globulin Ratio 1.3 (1.1-1.8); Alkaline Phosphatase 108 U/L (38-126); Anion Gap 31.2 mEq/L (5-15); Aspartate Amino Transferase 46 U/L (17-59); Bilirubin,Total 0.6 mg/dl (0.2-1.3); Calcium 9.9 mg/dl (8.4-10.2); Carbon Dioxide 18 mmol/L (22.0-30.0); Creatinine Clearance Estimated 6 mL/min (50-200); Estimated Glomerular Filt Rate 6 ml/min (>60); GFR (African American) 8 ML/MIN (>60); Globulin 3.8 g/dL (1.3-3.2); Glucose 240 mg/dl (74-100); Total Protein,Serum 8.7 g/dl (6.3-8.2)
[2019-12-25 14:57] LABS: Blood Urea Nitrogen 148 mg/dl (9-20); NT Pro Brain Natriuretic Pep. 2730 pg/mL (0-450); Potassium 6.2 mmoL/L (3.5-5.1)
[2019-12-25 15:00] LABS: Troponin I 0.05 ng/ml (0.00-0.034)
--- NOTE | 2019-12-25 15:16 | ECG_ITS ---
APPROVED REPORT Exam: Resting ECG HR:64 bpm ECG Measurements Heart Rate 64 AXES QRSd 104 QRS -13 QT 402 T -33 QTc 414 <Conclusion> Junctional rhythm Low voltage QRS Inferior infarct, age undetermined Cannot rule out Anterior infarct, age undetermined ST & T wave abnormality, consider lateral ischemia Abnormal ECG Electronically signed by : Jorge Cam, 12/26/2019 06:55:09
--- NOTE | 2019-12-25 15:17 | PC.NURSE ---
RT at bedside doing EKG
[2019-12-25 16:09] LABS: VBG Base Excess -12.9 mmol/L (-2.4-2.3); VBG HCO3 16.1 mmol/L (23-30); VBG Oxygen Saturation 74.6 % (50-70); VBG PCO2 47.8 mmol/L (35-51); VBG PO2 46.6 mmol/L (28-40); VBG Total CO2 17.5 mmol/L (23-27)
[2019-12-25 16:11] LABS: VBG PH 7.14 mmol/L (7.31-7.41)
--- NOTE | 2019-12-25 16:22 | PC.NURSE ---
Dr Zahida gil.
--- NOTE | 2019-12-25 16:23 | PC.NURSE ---
Dr Teague speaking with Dr Villegas at this time.
[2019-12-25 16:25] LABS: Lactic Acid 2.2 mmol/L (0.7-2.1)
--- NOTE | 2019-12-25 16:31 | PC.NURSE ---
calling [facility] at this time.
--- NOTE | 2019-12-25 16:50 | PC.NURSE ---
Dr Villegas speaking with Dr Ledezma at
--- NOTE | 2019-12-25 16:52 | PC.NURSE ---
[facility] accepted pt.
[2019-12-25 17:16] LABS: Troponin I 0.04 ng/ml (0.00-0.034)
[2019-12-25 17:49] LABS: Reflex Lactic Add Lactic Reflex
== END 2019-12-25 18:43 | disposition short-term general hospital (02) ==
PROVIDERS: Emergency Provider Emergency Medicine; PCP Family Medicine
DX: N17.9 Acute kidney failure, unspecified (principal); E87.2 Acidosis; E11.65 Type 2 diabetes mellitus with hyperglycemia; I48.20 Chronic atrial fibrillation, unspecified; E78.5 Hyperlipidemia, unspecified; I25.10 Atherosclerotic heart disease of native coronary artery without angina pectoris; I10 Essential (primary) hypertension; Z79.899 Other long term (current) drug therapy; Z96.641 Presence of right artificial hip joint; Z96.642 Presence of left artificial hip joint; R06.02 Shortness of breath
CPT/HCPCS: 71045; 80053; 82803; 83605; 83880; 84443; 84484; 85025; 93005; 96374; 96375; 99284